=== PATIENT | male | born 1960 | race Caucasian/White ===

== ENCOUNTER 2020-11-16 10:26 | Emergency (ER) | payer OTHER, SELFPAY ==
[2020-11-16 10:28] VITALS: BP 179/113; PULSE 108; RESP 16; TEMP 36.3; O2SAT 96; BMI 25.7
[2020-11-16 10:34] VITALS: BP 171/107; PULSE 104; PULSE 105; RESP 18; O2SAT 96
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
--- NOTE | 2020-11-16 10:39 | XR_ITS ---
WS: [id number] Left wrist, 4 views, 11/16/2020 Clinical Data: fall injury Comparison: Left forearm, 07/29/2013. Findings: There is a fracture of the distal left radius. The fracture occurs adjacent to the distal portion of an orthopedic plate which had been applied years before to reduce a mid radial fracture. There is radiopaque material in the subcutaneous tissue of the left forearm which has been present fo r years. Incidentally noted is deformity of the left first metacarpal. The orthopedic plate applied t o the midportion of the left radius appears is intact. XR/XR wrist LT min 3V* [id number] Impression: 1. Fracture of distal left radius at the level of the distal portion of an orth opedic plate. 2. Numerous foreign bodies in the subcutaneous tissue of the left forearm and w rist unchanged.
[2020-11-16] MEDS: HYDROcodone-acetaminophen 7.5-325 mg Tablet 1 TAB PO (10:45)
[2020-11-16 12:23] VITALS: BP 155/106; PULSE 100; RESP 18; TEMP 37.2; O2SAT 94
--- NOTE | 2020-11-20 10:53 | DCPLANNER ---
restaurant operations manager had message to schedule a follow up appointment for patient with ortho. restaurant operations manager called the ortho clinic, spoke with , gave clinic patients information. restaurant operations manager was told that patients information would be printed and reviewed. Patient has [facility] insurance, patient case manager emailed January, with [facility], patients information was sent over a secure email so that the authorization process could be started.
--- NOTE | 2020-11-21 09:19 | DCPLANNER ---
Patient has a follow up appointment scheduled for Saturday, December 05, 2020 at 9:[address] Vargas. Clinic will call patient with appointment information.
--- NOTE | 2020-12-19 14:39 | DCPLANNER ---
Patient had a follow up appointment scheduled for 12.05.[address] Vargas at [facility] - patient did attend appointment.
== END 2020-11-16 12:30 | disposition home or self-care (01) ==
PROVIDERS: Emergency Provider Physician Assistant
DX: S52.502A Unspecified fracture of the lower end of left radius, initial encounter for closed fracture (principal); W01.0XXA Fall on same level from slipping, tripping and stumbling without subsequent striking against object, initial encounter
CPT/HCPCS: 29125; 73110; 99281; 99283

== ENCOUNTER → 2020-12-05 09:44 | Outpatient (BNVA) | payer OTHER, SELFPAY | PROVIDERS: PCP Physician Assistant; Referring Provider Physician Assistant; Visit Provider Specialist | DX: S52.592A Other fractures of lower end of left radius, initial encounter for closed fracture (principal); S62.355A Nondisplaced fracture of shaft of fourth metacarpal bone, left hand, initial encounter for closed fracture; X58.XXXA Exposure to other specified factors, initial encounter; M24.445 Recurrent dislocation, left finger | CPT/HCPCS: 73110 ==

== ENCOUNTER 2020-12-05 13:48 | Outpatient (CLI) | payer OTHER, SELFPAY | END 2020-12-05 13:49 | disposition home or self-care (01) | LOC: SPT 13:49 | PROVIDERS: PCP Physician Assistant; Visit Provider Specialist | DX: Z46.89 Encounter for fitting and adjustment of other specified devices (principal); S52.592D Other fractures of lower end of left radius, subsequent encounter for closed fracture with routine healing; X58.XXXD Exposure to other specified factors, subsequent encounter | CPT/HCPCS: 97760; L3982 ==

== ENCOUNTER 2021-02-26 15:49 | Emergency (ER) | payer OTHER, SELFPAY ==
[2021-02-26 16:22] VITALS: BP 107/74; PULSE 109; RESP 16; TEMP 36.4; O2SAT 96; BMI 26.6
--- NOTE | 2021-02-26 17:09 | ED_ITS ---
HPI - Animal Bite General: Chief Complaint: Animal Bite Stated Complaint: BIT BY RACOON 2 DAYS AGO, SWELLING, SORES IN RUE Time Seen by Provider: 02/26/21 17:07 History of Present Illness: HPI narrative: Patient is a 60-year-old male who comes to the ED after a raccoon bite. Patient says he was bitten by a raccoon approximately 2 days ago. The raccoon bit him a couple times on his right forearm. Patient says he was going to grab his trash can 1 night and the raccoon was in it and came out bit him when he grabbed a move the trash can. He denies any pain or purulent drainage from bite area. [facility] and [facility] told him he needs to come to the ED for rabies postexposure prophylaxis. Associated symptoms: Deny chills, fever(s) or headache(s) Review of Systems Const: Denies: fever(s), chills or fatigue Eyes: Denies: change in vision or eye discomfort ENMT: Denies: throat pain, odynophagia, nasal discharge or nasal congestion Card: Denies: chest pain, palpitations, edema, swelling of feet/ankles, dyspnea on exertion or orthopnea Resp: Denies: dyspnea, productive cough or non-productive cough GI: Denies: abdominal pain, nausea, vomiting, diarrhea, constipation or hematochezia : Denies: flank pain, difficulty urinating, dysuria or hematuria Musc: Denies: neck pain, back pain or extremity swelling Skin/Breast: Reports: new lesions (Couple small superficial puncture wound/bite barajas on right forearm.); Denies: rash Neuro: Denies: headache(s), numbness in extremities or weakness in extremities Physical Exam Const: COMMON NORMALS: no acute distress, patient oriented x3 and alert HENMT: COMMON NORMALS: normocephalic HEAD & SCALP: normocephalic MOUTH: Normal oral and palatal mucosa present THROAT: posterior oropharynx normal and uvula midline Neck/C-Spine: COMMON NORMALS: supple GENERAL: Yes normal visual inspection Resp: COMMON NORMALS: normal respiratory effort, No retractions, No use of accessory muscles and clear to auscultation bilaterally AUSCULTATION: clear to auscultation bilaterally Cardio: COMMON NORMALS: regular rate, regular rhythm, S1 normal heart sound present, S2 normal heart sound present, No gallops present (Cardio), No clicks present (Cardio), No murmurs present (Cardio) and Peripheral pulses 2+ throughout RATE: regular rate RHYTHM: regular rhythm HEART SOUNDS: S1 normal heart sound present and S2 normal heart sound present PERIPHERAL PULSES: Peripheral pulses 2+ throughout GI: COMMON NORMALS: Normal to inspection, nondistended, normoactive bowel sounds present, Soft to palpation, non-tender and no masses PALPATION: Yes Soft to palpation : COMMON NORMALS: Yes no CVA tenderness BLADDER/KIDNEY EXAM: Yes no CVA tenderness Back/Pelvis: COMMON NORMALS: no CVA tenderness Extremity: NARRATIVE EXTREMITY EXAM: Patient has multiple superficial abrasion/bite barajas on right forearm. There is some surrounding erythema and warmth around barajas but no tenderness or visible drainage seen. Findings suggestive of some possible cellulitis developing. GENERAL: Yes normal exam except as noted Neuro: COMMON NORMALS: patient oriented x3 and moves all extremities SENSORIUM/ORIENTATION: Yes alert Skin: NARRATIVE SKIN EXAM: Patient has multiple superficial abrasion/bite barajas on right forearm. There is some surrounding erythema and warmth around barajas but no tenderness or visible drainage seen. Findings suggestive of some possible cellulitis developing. GENERAL SKIN EXAM: dry skin Course Vital Signs: Vital signs: Vital Signs Temperature 97.6 F 02/26/21 16:22 Pulse Rate 109 H 02/26/21 16:22 Respiratory Rate 16 02/26/21 16:22 Blood Pressure 107/74 02/26/21 16:22 Pulse Oximetry 96 02/26/21 16:22 MDM - Animal Bite MDM Narrative: Medical decision making narrative: Patient is a 60-year-old male comes to the ED after being bitten by a raccoon the right forearm. Patient was told [facility] come here by [facility] for [facility]. Exam findings show some superficial bite barajas and abrasions on right forearm with some surrounding erythema and warmth. No purulent drainage or tenderness. Findings suggestive of some developing cellulitis. Patient was given rabies immunoglobulin and rabies vaccine while here in the ED. Patient was also given a dose of Augmentin here in the ED. Patient diagnosed with animal bite, postexposure prophylaxis for rabies and cellulitis. He was discharged home with a prescription for Augmentin and was instructed on the days he needs to return to the ED to receive further rabies shots to complete prophylaxis series. Return to ED precautions given. Patient understood and agreed with plan. Discharge Plan Discharge Patient Disposition: Home Clinical Impression: Need for post exposure prophylaxis for rabies, Bite by animal Cellulitis Qualifiers: Site of cellulitis: extremity Site of cellulitis of extremity: upper extremity Laterality: right Qualified Code(s): L03.113 - Cellulitis of right upper limb Condition: Stable Prescriptions: New Augmentin 500-125 mg tablet 1 tab PO BID 7 Days Qty: 14 RF: 0 No Action (DME) FAST FORM COCK UP SPLINT See Rx Instructions .Route .MEDSUPPLY Qty: 1 RF: 0 Discharge Orders: Discharge ED (Routine); Ordered 02/26/21 Ordered By: Deandre Moreno [facility] [Primary Care Provider] - Discharge Diet: Regular Discharge Activity: Resume usual activity Patient Instructions: Rabies Vaccine (Injection), Rabies Immune Globulin (Injection), Cellulitis (ED), Rabies (ED) Activity Restrictions/Additional Instructions: Follow-up with medical provider as directed. return to the ED for rabies vaccination dose on day 3(Thursday,March 01), 7() and 14(March 11). take medications as prescribed. Return to the ER or your medical provider if condition worsens. Please read and understand discharge instructions. If any questions, please ask. Coding Level of Care Code ED Industry Segment Specialist for Carlos Fwjohan Exam Comprehensive
[2021-02-26] MEDS: rabies vaccine 2.5 unit SDV IM (18:07)
== END 2021-02-26 18:22 | disposition home or self-care (01) ==
PROVIDERS: Emergency Provider Physician Assistant
DX: L03.113 Cellulitis of right upper limb (principal); Z20.3 Contact with and (suspected) exposure to rabies; Z29.14 Encounter for prophylactic rabies immune globulin; S51.851A Open bite of right forearm, initial encounter; W55.51XA Bitten by raccoon, initial encounter; Z23 Encounter for immunization
CPT/HCPCS: 90375; 90471; 90675; 96372; 99283

== ENCOUNTER → 2021-05-08 08:46 | Outpatient (BNVA) | payer OTHER, SELFPAY | PROVIDERS: Visit Provider Internal Medicine | DX: Z01.812 Encounter for preprocedural laboratory examination (principal); Z20.822 Contact with and (suspected) exposure to COVID-19; D12.6 Benign neoplasm of colon, unspecified | CPT/HCPCS: 87635 ==

== ENCOUNTER 2021-05-13 08:11 | Day surgery (SDC) | payer OTHER, SELFPAY ==
[2021-05-10 13:44] VITALS: BMI 26.6
--- NOTE | 2021-05-13 08:28 | ANES.PREANE2 ---
Pre-Anesthetic Assessment Pre-Anesthetic Assessment: Height/Weight: Height 1.65 m Weight 72.575 kg Preop Diagnosis: adenoma Proposed Procedure: Operation Date: 05/13/21 10:00 Proposed Procedures p Colonoscopy 24490 d12.6(Not Applicable) - Wiley Price MD Familial anesthetic complications: none Was Beta Nancy taken within 24 hours: N/A Was Clonidine taken within 24 hours: N/A Last intake: > 8 hrs Social: Social History: Alcohol (4 shots a day) and Tobacco Comment: fullbeard Exam: Pre-Anes Outpt Exam: alert, oriented x 3, clear to auscultation bilaterally and regular rate & rhythm Airway: Cervical ROM: WNL MP: 3 Dentition: Other (2 teeth) Pulmonary: Pulmonary: COPD CV/HEM: CV/HEM: HTN GI: GI: GERD Anesthetic Plan: ASA status: 2 Anesthesia: MAC PFSH Anesthesia PFSH: Family History (Updated 05/02/21 @ 14:[address]) Other Cancer Social History (Updated 05/02/21 @ 14:54 by VALERIE Yoder) Smoking and tobacco status: current every day smoker Alcohol intake: current Marital status: Number of children: 3 service: Yes History of recent travel: No Data Anesthesia Cardiac Studies: No Data to Display
[2021-05-13 09:32] VITALS: BP 157/121; PULSE 98; RESP 18; TEMP 37.2; O2SAT 98
[2021-05-13] MEDS: sodium chloride 0.9% 1,000 ML 30 ML IV (09:45)
--- NOTE | 2021-05-13 09:45 | P.HP_ITS ---
Same Day Surgery H&P Indication for Procedure/HPI DATE OF PROCEDURE: May 13, 2021 CHIEF COMPLAINT/INDICATIONFOR SURGICAL PROCEDURE: History of of serrated adenoma PREOP DIAGNOSIS: history of a serrated adenoma PLANNED PROCEDRUE: Operation Date: 05/13/21 10:00 Proposed Procedures p Colonoscopy 87543 d12.6(Not Applicable) - Wiley Price MD Medications/Allergies* Home Medications Medication Instructions Recorded Confirmed Type albuterol sulfate 90 mcg/actuation 2 puff INHALATION QID 04/22/21 05/13/21 History aerosol inhaler budesonide-formoterol HFA 160 2 puff INHALATION BID 04/22/21 05/13/21 History mcg-4.5 mcg/actuation aerosol inhaler cholecalciferol (vitamin D3) 50 4,000 unit PO DAILY tab 04/22/21 05/13/21 History mcg (2,000 unit) chewable tablet hydrochlorothiazide 25 mg tablet 12.5 mg PO DAILY tab 04/22/21 05/13/21 History omeprazole 40 mg capsule,delayed 40 mg PO DAILY 04/22/21 05/13/21 History release pravastatin 40 mg tablet 20 mg PO DAILY 04/22/21 05/13/21 History sildenafil 100 mg tablet 100 mg PO .weekly PRN tab 04/22/21 05/13/21 History tiotropium bromide 2.5 2 puff INHALATION DAILY 04/22/21 05/13/21 History mcg/actuation mist for inhalation losartan 100 mg tablet 100 mg PO DAILY 05/02/21 05/13/21 History Allergies/Adverse Reactions Allergy/AdvReac Type Severity Reaction Status Date / Time No Known Allergies Allergy Verified 05/10/21 13:40 Pertinent History/Comorbid Conditions* Family History (Updated 05/02/21 @ 14:53 by VALERIE Yoder) Cancer Social History Smoking and tobacco status: current every day smoker Alcohol intake: current Marital status: Number of children: 3 service: Yes History of recent travel: No Pertinent Exam Findings alert, oriented x 3, clear to auscultation bilaterally, regular rate & rhythm, operative site marked and procedure specific exam findings Recommendations Surgery/Procedure today Coding Level of Care Code Acute Massage Coordinator for Carlos Vela
[2021-05-13 11:05] VITALS: BP 105/84; PULSE 95; RESP 18; TEMP 36.4; O2SAT 95
[2021-05-13 11:15] VITALS: BP 121/88; PULSE 82; RESP 18; O2SAT 96
--- NOTE | 2021-05-13 19:26 | ANE.PACU2 ---
Inpatient post-anesthesia follow up: Airway intact: Yes Vital signs: Temperature 97.5 F Pulse Rate 82 Respiratory Rate 18 Blood Pressure 121/88 Pulse Oximetry 96 Oxygen Delivery Me thod Room Air Oxygen Flow Rate Fraction of Inspir ed Oxygen Hydration adequate: Yes Nausea and vomiting: No Pain level: 2 Mental status: Baseline
== END 2021-05-13 11:34 | disposition home or self-care (01) ==
PROVIDERS: Visit Provider Internal Medicine
PROC: 0DJD8ZZ Inspection of Lower Intestinal Tract, Via Natural or Artificial Opening Endoscopic (ICD-10-PCS; CPT 45378; principal; 2021-05-13 10:00)
DX: D12.6 Benign neoplasm of colon, unspecified (principal); D12.0 Benign neoplasm of cecum; D12.4 Benign neoplasm of descending colon; D12.3 Benign neoplasm of transverse colon; J44.9 Chronic obstructive pulmonary disease, unspecified; I10 Essential (primary) hypertension; K21.9 Gastro-esophageal reflux disease without esophagitis; F17.210 Nicotine dependence, cigarettes, uncomplicated
CPT/HCPCS: 45385; 88305; 96360; J2704; J7030

== ENCOUNTER 2021-11-07 09:11 | Outpatient (CLI) | payer OTHER, SELFPAY ==
--- NOTE | 2021-11-07 09:23 | MM_ITS ---
WS: [id number] DIAGNOSTIC BILATERAL DIGITAL MAMMOGRAM WITH CAD Bilateral breast ultrasound, limited HISTORY: Pain; right NIPPLE PAIN COMPARISON: None available. TECHNIQUE: Bilateral craniocaudad, mediolateral oblique, and mediolateral views are submitted. Spot c ompression bilateral MLO views. Computer aided detection utilized. Breast composition: The breasts are almost entirely fatty. Flamelike densities posterior to the nippl es but greatest on the RIGHT. No distortion of soft tissues and no nipple retraction. There is an enl arged but benign-appearing lymph node in the RIGHT axilla. Bilateral breast ultrasound, limited. Dendritic hypoechoic area posterior to the nipple corresponds to the mammographic abnormality. This a kaleb of soft tissue infiltration measures 2.1 x 1.8 x 0.8 cm with mild increased vascularity. Benign-a ppearing RIGHT axillary lymph node. There is a smaller area of decreased echogenicity posterior to the LEFT nipple. MM/[place] [id number] IMPRESSION: BI-RADS: 2-Benign FOLLOW UP: See Report Bilateral gynecomastia, RIGHT greater than LEFT.
== END 2021-11-07 09:12 | disposition home or self-care (01) ==
PROVIDERS: Visit Provider Family Medicine
DX: N64.4 Mastodynia (principal); N62 Hypertrophy of breast
CPT/HCPCS: 76642; 77066

== ENCOUNTER 2022-04-25 16:17 | Inpatient (IN) | payer OTHER, SELFPAY ==
[2022-04-25] VITALS (9 sets, daily range): BP systolic 85–103; BP diastolic 61–78; PULSE 98–130; RESP 15–31; TEMP 37; O2SAT 94–97
--- NOTE | 2022-04-25 17:09 | XRR_ITS ---
PROCEDURE INFORMATION: Exam: XR Chest Exam date and time: 04/25/2022 5:36 PM Age: 61 years old Clinical indication: Other: Hypotension TECHNIQUE: Imaging protocol: Radiologic exam of the chest. Views: 1 view. COMPARISON: CR Ribs RIGHT w PA Chest [id number] 05/24/2017 9:15 AM FINDINGS: Lungs: Lungs are clear bilaterally. Pleural spaces: No pleural effusion. No pneumothorax. Heart/Mediastinum: Stable mild enlargement of the cardiac silhouette. Mediastinal contours are unremarkable. Vasculature: Stable vascular calcifications in the aorta. Bones/joints: Unremarkable for age. XR/XR chest 1V portable [id number] IMPRESSION: 1. No acute cardiopulmonary process. 2. Incidental/nonacute findings are listed in the report.
--- NOTE | 2022-04-25 17:09 | ECG_ITS ---
[facility] Test Date: 2022-04-25 Pat Name: Jamar Gutierrez Department: Room: Gender: Male Payroll Representative: : 1960 Requested By: Vinny Wayne Order Number: [id number] Jesusita MD: Devon Abraham M.D. Measurements Intervals [place] Rate: 125 P: 21 AL: 130 QRS: 45 QRSD: 77 T: 76 QT: 318 QTc: 459 Interpretive Statements SINUS TACHYCARDIA MODERATE ST DEPRESSION [0.05+ mV ST DEPRESSION] Compared to ECG 10/12/2018 16:46:09 No significant changes Electronically Signed On 04-28-2022 17:56:36 CDT by Devon Abraham M.D. [email or web address] al[facility]uskegeeEternoGenselect [facility].Jogli/store/NU/[id number] [email or web address]
--- NOTE | 2022-04-25 17:12 | W.ED.CHESTPA ---
HPI - Chest Pain General: Chief Complaint: Chest Pain Stated Complaint: Very low BP Time Seen by Provider: 04/25/22 17:11 History of Present Illness: Mr. Gutierrez is a 61-year-old gentleman with history of COPD, hypertension, hyperlipidemia who presents to the emergency department due to syncope and low blood pressure. He reports intermittent substernal chest pain that radiates to the back described as an elephant sitting on his chest and subsequently increased lightheadedness including one episode of syncope. Currently symptoms are mild to moderate in intensity however has persisted. Denies history of frequent chest pain. Reports normal p.o. intake of liquids. No vomiting or diarrhea. No other specific changes in health, exacerbating, or alleviating factors identified. Onset (ago): hour(s) Timing of current episode: constant Prior episodes: No Onset: during rest Pain location: substernal Severity: moderate Quality: heaviness Exacerbating factors: exertion Associated symptoms: Reports syncope Review of Systems General: Reports: 10 or more systems reviewed and unremarkable except in HPI and below Card: Reports: syncope PFSH ED PFSH: Medical History (Updated 04/29/22 @ 00:01 by ) VASHTI (acute kidney injury) Chest pain COPD (chronic obstructive pulmonary disease) H/O esophageal reflux Hypokalemia Hypomagnesuria Hypotension Leukocytosis Polyp of colon Syncope Family History Other Cancer Social History Smoking and tobacco status: current every day smoker Alcohol intake: current Marital status: Number of children: 3 service: Yes History of recent travel: No Physical Exam Const: COMMON NORMALS: alert GENERAL APPEARANCE: cooperative and well developed HENMT: COMMON NORMALS: normocephalic and atraumatic HEAD & SCALP: normocephalic and atraumatic Eye: COMMON NORMALS: conjunctivae normal CONJUNCTIVA: Yes conjunctivae normal SCLERA: sclerae normal Neck/C-Spine: COMMON NORMALS: supple GENERAL: Yes trachea midline Resp: COMMON NORMALS: clear to auscultation bilaterally EFFORT & INSPECTION: Yes able to speak in complete sentences AUSCULTATION: clear to auscultation bilaterally Cardio: COMMON NORMALS: regular rate and regular rhythm RATE: regular rate RHYTHM: regular rhythm GI: COMMON NORMALS: Soft to palpation PALPATION: Yes Soft to palpation and No Tenderness to palpation present (GI) Extremity: GENERAL: Yes normal exam except as noted and No edema Neuro: COMMON NORMALS: moves all extremities SENSORIUM/ORIENTATION: Yes alert and No Orientation impaired Psych: COMMON NORMALS: mental status grossly normal and Normal thought process present THOUGHT PROCESS: Normal thought process present Course ED course: - Patient was seen and evaluated by me at bedside - Patient placed on cardiac monitors, IV access obtained - Initial evaluation notable for exam as above - Labs and xrays personally interpreted by me. EKG with sinus tachycardia, occassional PAC. 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 Fluids given hypotension and tachycardia. - Labs notable for leukocytosis, normal hemoglobin. Metabolic panel with evidence of dehydration. Hypokalemia present as well as creatinine significant elevation. No reported history of CKD. Magnesium also low. Potassium abd magnesium ordered. Delta troponin negative. BNP elevated. - Imaging notable for no lobar consolidation or pneumothorax. CT head negative for acute intracranial pathology. CT chest abdomen pelvis negative for acute infectious. Incidental findings discussed with patient. - Upon serial reexamination after treatment the patient was mildly improved though still requiring additional fluids - Based on patient history, evaluation, and testing as interpreted the most likely cause of the patient's condition is unclear cause of VASHTI with dehydration and syncope as well as Electrolyte/metabolic derangements - The results of ED evaluation were discussed with the patient including plan for admission due to requirement for level of care not available if discharged to prevent significant worsening/deterioration. - Admitting service was contacted and Dr [] with [] agreed to admit the patient - Patient was admitted without further deterioration or significant events. Note: Click bubbles or prepopulated spear in note writing are used for assistance with data collection and billing and are inherently more limited than narrative and other text portions of this note. Please use narrative for additional clinical history and defer to narrative/free test for any case of contradictory information. If information appears in only free text or click bubble it should be considered present or absent as reported. Please contact note engineering technical writer for clarifications of clinical information or contradictory information. MDM is a brief summary, contradictory or erroneous seeming information should be clarified and full note should be reviewed. Vital Signs: Vital signs: Vital Signs Temperature 98.8 F 04/28/22 12:15 Pulse Rate 70 04/28/22 12:15 Respiratory Rate 23 H 04/28/22 12:15 Blood Pressure 133/83 04/28/22 12:15 Pulse Oximetry 100 04/28/22 12:15 MDM - Chest Pain Medical Decision Making 61-year-old gentleman presenting with chest pain. Patient found to have tachycardia and hypotension. Labs notable for VASHTI and metabolic derangements. Admitted for further management after modest improvement with IV fluids. Medical Records I reviewed the patient's medical records. Lab Data I reviewed the patient's lab results. : 04/28/22 05:20 04/28/22 03:56 Radiology Impressions Chest X-Ray 04/25/22 17:09 IMPRESSION: 1. No acute cardiopulmonary process. 2. Incidental/nonacute findings are listed in the report. Chest/Abdomen/Pelvis CT 04/25/22 17:51 IMPRESSION: 1. No acute findings. 2. Moderate severity centrilobular emphysema. 3. Right lung nodules measuring up to 4 mm. For patients at low risk (minimal or absent history of smoking and of other known risk factors), no routine follow-up is indicated. For patients at high risk (history of smoking or of other known risk factors), consider optional CT Chest at 12 IMPRESSION: 1. No acute findings. 2. Incidental findings above. COMMENTS: Consistent with the [employer]'s Incidental Findings Committee white paper (J Am Amilcar Radiol 2017): For any incidental adrenal lesion greater than or equal to 1 cm but less than or equal to 4 cm classified in this report as benign, likely benign, or containing fat (including classification as an adenoma or myelolipoma), no follow-up imaging is recommended per consensus recommendations based on imaging criteria. Further lab evaluation could be pursued if warranted based on clinical findings. Head CT 04/25/22 17:51 IMPRESSION: 1. No acute abnormality of the brain. 2. Mild chronic white matter microangiopathic change. 3. Small amount of fluid in the right and left mastoid air cells. 4. Incidental/nonacute findings are listed in the report. Laboratory Results WBC 23.0 10^3/uL (4.0-10.0) H 04/25/22 17:38 RBC 4.28 10^6/uL (4.1-5.3) 04/25/22 17:38 Hgb 14.4 g/dL (11.7-16.6) 04/25/22 17:38 Hct 41.8 % (42.0-52.0) L 04/25/22 17:38 MCV 97.7 fl (80-94) H 04/25/22 17:38 MCH 33.6 pg (28.0-34.0) 04/25/22 17:38 MCHC 34.4 g/dL (30.0-36.0) 04/25/22 17:38 RDW 12.8 % (12.1-15.1) 04/25/22 17:38 Plt Count 331 10^3/cmm (130-400) 04/25/22 17:38 MPV 11.0 fL (7.4-10.4) H 04/25/22 17:38 Neut % (Auto) 76.8 % 04/25/22 17:38 Lymph % (Auto) 12.2 % 04/25/22 17:38 Sequoyah % (Auto) 8.3 % 04/25/22 17:38 Eos % (Auto) 1.2 % 04/25/22 17:38 Baso % (Auto) 0.5 % 04/25/22 17:38 Neut # (Auto) 17.66 10^3/uL (1.8-7.7) H 04/25/22 17:38 Lymph # (Auto) 2.8 10^3/uL (0.8-4.8) 04/25/22 17:38 Sequoyah # (Auto) 1.9 10^3/uL (0.2-0.9) H 04/25/22 17:38 Eos # (Auto) 0.3 10^3/uL (0.0-0.8) 04/25/22 17:38 Baso # (Auto) 0.1 10^3/uL (0.0-0.1) 04/25/22 17:38 Nucleated RBC % (auto) 0 % 04/25/22 17:38 Nucleated RBCs # 0.0 /100WBC 04/25/22 17:38 PT 13.90 SECONDS (12.1-14.9) 04/25/22 17:38 INR 1.04 (0.8-1.2) 04/25/22 17:38 APTT 28.3 SECONDS (23.9-36.7) 04/25/22 17:38 Sodium 134 mmol/L (136-145) L 04/25/22 17:38 Potassium 2.8 mmol/L (3.5-5.1) L* 04/25/22 17:38 Chloride 93 mmol/L (98-107) L 04/25/22 17:38 Carbon Dioxide 22 mmol/L (22-29) 04/25/22 17:38 Anion Gap 21.8 (5-19) H 04/25/22 17:38 BUN 39 mg/dL (8-23) H 04/25/22 17:38 Creatinine 4.8 mg/dL (0.7-1.2) H 04/25/22 17:38 GFR Calculation 12.4 mL/min (90-130) L 04/25/22 17:38 Glucose 122 mg/dL (65-115) H 04/25/22 17:38 Calculated Osmolality 289 mOsm/kg (285-295) 04/25/22 17:38 Calcium 9.4 mg/dL (8.5-10.5) 04/25/22 17:38 Magnesium 1.3 mg/dL (1.7-2.3) L 04/25/22 17:38 Total Bilirubin 0.7 mg/dL (0.15-1.2) 04/25/22 17:38 AST 23 U/L (0-40) 04/25/22 17:38 ALT 20 U/L (0-41) 04/25/22 17:38 Alkaline Phosphatase 132 IU/L (40-130) H 04/25/22 17:38 Creatine Kinase 75 U/L (39-308) 04/25/22 20:00 Troponin T Baseline 39 ng/L (0-15) H 04/25/22 17:38 Troponin T 120 Minute 33.02 ng/L (0-15) H 04/25/22 20:00 Delta Troponin T -5.98 ABS# (0-10) L 04/25/22 20:00 NT-Pro-B Natriuret Pep 3110 pg/mL (0-125) H 04/25/22 17:38 Total Protein 7.3 g/dL (6.6-8.7) 04/25/22 17:38 Albumin 4.4 g/dL (3.5-5.2) 04/25/22 17:38 Globulin 2.9 g/dL (1.3-4.6) 04/25/22 17:38 Lipase 120 U/L (13-60) H 04/25/22 17:38 Critical Care Time Critical Care Time: Critical Care Time: Yes Total Critical Care Time: 45 Attestation: The high probability of a clinically significant, sudden or life threatening deterioration of the patient's renal/metabolic system(s) required my full and direct attention, intervention and personal management. The critical care time is as shown. 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
[2022-04-25] MEDS: sodium chloride 0.9% 1,000 ML 999 ML IV (17:38)
[2022-04-25 17:47] LABS: Basophils # 0.1 10^3/uL (0.0-0.1); Basophils % 0.5 %; Eosinophils # 0.3 10^3/uL (0.0-0.8); Eosinophils % 1.2 %; Hematocrit 41.8 % (42.0-52.0); Hemoglobin 14.4 g/dL (11.7-16.6); Lymphocytes # 2.8 10^3/uL (0.8-4.8); Lymphocytes % 12.2 %; Mean Corpuscular HGB Conc 34.4 g/dL (30.0-36.0); Mean Corpuscular Hemoglobin 33.6 pg (28.0-34.0); Mean Corpuscular Volume 97.7 fl (80-94); Monocytes # 1.9 10^3/uL (0.2-0.9); Monocytes % 8.3 %; Neutrophils # 17.66 10^3/uL (1.8-7.7); Neutrophils % 76.8 %; Nucleated Red Blood Cells % 0 %; Platelet Count 331 10^3/cmm (130-400); Red Blood Count 4.28 10^6/uL (4.1-5.3); Red Cell Distribution Width 12.8 % (12.1-15.1)
--- NOTE | 2022-04-25 17:51 | CTR_ITS ---
PROCEDURE INFORMATION: Exam: CT Head Without Contrast Exam date and time: 04/25/2022 7:03 PM Age: 61 years old Clinical indication: Syncope and collapse; Patient HX: Syncope w fall TECHNIQUE: Imaging protocol: Computed tomography of the head without contrast. Sagittal and coronal reformatted images were created and reviewed. Radiation optimization: All CT scans at this facility use at least one of these dose optimization techniques: automated exposure control; mA and/or kV adjustment per patient size (includes targeted exams where dose is matched to clinical indication); or iterative reconstruction. COMPARISON: No relevant prior studies available. RADIATION DOSE METRICS: Total DLP (mGy-cm): 1073.68 FINDINGS: Brain: No acute intracranial hemorrhage. No acute infarct. No intra-axial or extra-axial masses. Trujillo-white matter differentiation is preserved. No cerebral edema. No extra-axial fluid collections. No midline shift. No evidence for Chiari 1 malformation. Mild cerebral volume loss. Mildly decreased attenuation in the deep white matter, consistent with mild chronic microangiopathic change. Cerebral ventricles: No hydrocephalus. Paranasal sinuses: Visualized paranasal sinuses are clear. Mastoid air cells: Small amount of fluid in the right and left mastoid air cells. Orbital cavities: Globes and lenses, extraocular muscles, and optic nerves are intact bilaterally. No acute intraorbital abnormality. Nasal cavity: Moderate left nasal septal deviation. Bharti bullosa of the right and left middle turbinates. Bones/joints: No acute fracture. Soft tissues: No acute abnormality of the extracranial soft tissues. Vasculature: Atherosclerotic changes in the visualized arteries. CT/CT head wo con* [id number] IMPRESSION: 1. No acute abnormality of the brain. 2. Mild chronic white matter microangiopathic change. 3. Small amount of fluid in the right and left mastoid air cells. 4. Incidental/nonacute findings are listed in the report.
--- NOTE | 2022-04-25 17:51 | CTR_ITS ---
PROCEDURE INFORMATION: Exam: CT Chest Without Contrast; Diagnostic Exam date and time: 04/25/2022 7:07 PM Age: 61 years old Clinical indication: Abdominal pain; Epigastric; Patient HX: C/O syncope, hypotensive w cp radiating thru to back; Additional info: Syncope, chest pain radiating to back and abdominal discomfo TECHNIQUE: Imaging protocol: Diagnostic computed tomography of the chest without contrast. Radiation optimization: All CT scans at this facility use at least one of these dose optimization techniques: automated exposure control; mA and/or kV adjustment per patient size (includes targeted exams where dose is matched to clinical indication); or iterative reconstruction. COMPARISON: CR (CHEST, ) 04/25/2022 5:36 PM RADIATION DOSE METRICS: Total DLP (mGy-cm): 1350.08 FINDINGS: Lungs: There is moderate severity upper lung predominant centrilobular emphysema. There is no consolidation. There is a noncalcified pulmonary nodule in the right lower lobe visible on series 4, image 51 measuring 4 mm. There is a noncalcified pulmonary nodule in the right lower lobe visible on series 4, image 41 measuring 4 mm. There is no consolidation. Pleural spaces: Unremarkable. No pneumothorax. No pleural effusion. Heart: There is moderate coronary artery calcification. Heart size is normal. There is no pericardial effusion. Lymph nodes: There is no mediastinal or hilar lymphadenopathy. Vasculature: There is mild aortic atherosclerotic disease. Bones/joints: Healed right anterolateral 4th rib fracture. Healed left lateral 8th through 10th rib fractures. No acute fracture. The visible portions of the clavicles, shoulders, scapulae, sternum and spine are intact. Soft tissues: The extrathoracic soft tissues are unremarkable. months. (Reference: Buzz) REFERENCES: Buzz Carballo et al. Guidelines for Management of Incidental Pulmonary Nodules Detected on CT Images: From the Fleischner Society 2017. Radiology. 2017;284(1):228-243. PROCEDURE INFORMATION: Exam: CT Abdomen And Pelvis Without Contrast Exam date and time: 04/25/2022 7:07 PM Age: 61 years old Clinical indication: Abdominal pain; Epigastric; Patient HX: C/O syncope, hypotensive w cp radiating thru to back; Additional info: Syncope, chest pain radiating to back and abdominal discomfo TECHNIQUE: Imaging protocol: Computed tomography of the abdomen and pelvis without contrast. Radiation optimization: All CT scans at this facility use at least one of these dose optimization techniques: automated exposure control; mA and/or kV adjustment per patient size (includes targeted exams where dose is matched to clinical indication); or iterative reconstruction. COMPARISON: CR Abdomen Series Acute [id number] 10/12/2018 4:31 PM RADIATION DOSE METRICS: Total DLP (mGy-cm): 1350.08 FINDINGS: Liver: The liver is normal. Gallbladder and bile ducts: The gallbladder is normal. There is no biliary dilation. Pancreas: The pancreas is unremarkable. Spleen: The spleen is unremarkable. Adrenal glands: 17 mm low-density left adrenal nodule consistent with a benign lipid rich adenoma. The right adrenal gland is unremarkable. Kidneys and ureters: The kidneys are unremarkable. No hydronephrosis or stones. No ureteral dilation. Stomach and bowel: The stomach is decompressed, preventing meaningful evaluation of wall thickness. The small bowel is nondilated. The colon is unremarkable. Appendix: The appendix is normal. Intraperitoneal space: There is no free air or significant intraperitoneal free fluid. Vasculature: There is moderate aortic atherosclerotic disease. Lymph nodes: There is no lymphadenopathy in the retroperitoneum, mesentery, pelvis or inguinal regions. Urinary bladder: The urinary bladder is decompressed, preventing meaningful evaluation of wall thickness. Reproductive: The prostate and seminal vesicles are unremarkable. 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 Moderate lumbar degenerative disc disease. The pelvis and hips are unremarkable. Soft tissues: The abdominal wall is intact. CT/[place] [id number] IMPRESSION: 1. No acute findings. 2. Moderate severity centrilobular emphysema. 3. Right lung nodules measuring up to 4 mm. For patients at low risk (minimal or absent history of smoking and of other known risk factors), no routine follow-up is indicated. For patients at high risk (history of smoking or of other known risk factors), consider optional CT Chest at 12 IMPRESSION: 1. No acute findings. 2. Incidental findings above. COMMENTS: Consistent with the [employer]'s Incidental Findings Committee white paper (J Am Amilcar Radiol 2017): For any incidental adrenal lesion greater than or equal to 1 cm but less than or equal to 4 cm classified in this report as benign, likely benign, or containing fat (including classification as an adenoma or myelolipoma), no follow-up imaging is recommended per consensus recommendations based on imaging criteria. Further lab evaluation could be pursued if warranted based on clinical findings.
[2022-04-25 18:00] LABS: INR 1.04 (0.8-1.2); Partial Thromboplastin Time 28.3 SECONDS (23.9-36.7)
[2022-04-25 18:21] LABS: Troponin(5th) Baseline 39 ng/L (0-15)
[2022-04-25 18:30] LABS: Alanine Aminotransferase 20 U/L (0-41); Albumin Level 4.4 g/dL (3.5-5.2); Alkaline Phosphatase 132 IU/L (40-130); Anion Gap 21.8 (5-19); Aspartate Amino Transferase 23 U/L (0-40); Blood Urea Nitrogen 39 mg/dL (8-23); Calcium 9.4 mg/dL (8.5-10.5); Carbon Dioxide 22 mmol/L (22-29); Chloride 93 mmol/L (98-107); Globulin 2.9 g/dL (1.3-4.6); Glomerular Filtration Rate 12.4 mL/min (90-130); Glucose 122 mg/dL (65-115); Lipase 120 U/L (13-60); NT Pro B Type Natriuretic Pept 3110 pg/mL (0-125); Osmolality Calculated 289 mOsm/kg (285-295); Sodium 134 mmol/L (136-145); Total Bilirubin 0.7 mg/dL (0.15-1.2); Total Protein 7.3 g/dL (6.6-8.7)
[2022-04-25 18:54] LABS: Potassium 2.8 mmol/L (3.5-5.1)
--- NOTE | 2022-04-25 19:09 | ECG_ITS ---
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 Measurements Intervals [place] Rate: 109 P: 22 SC: 137 QRS: 33 QRSD: 79 T: 69 QT: 338 QTc: 456 Interpretive Statements SINUS TACHYCARDIA WITH OCCASIONAL SUPRAVENTRICULAR PREMATURE COMPLEXES MODERATE ST DEPRESSION [0.05+ mV ST DEPRESSION] Compared to ECG 04/25/2022 17:03:18 No significant changes Electronically Signed On 04-28-2022 18:21:31 CDT by Devon Abraham M.D. [id number]
--- NOTE | 2022-04-25 19:12 | PC.NURSE ---
REPORT GIVEN TO [facility].
[2022-04-25 19:13] LABS: Magnesium 1.3 mg/dL (1.7-2.3)
[2022-04-25 20:24] LABS: Troponin 5 2HR 33.02 ng/L (0-15)
[2022-04-25 20:25] LABS: Troponin 5 2HR Delta -5.98 ABS# (0-10)
[2022-04-25 20:34] LABS: Creatine Phosphokinase 75 U/L (39-308)
[2022-04-25 21:09] LABS: Lactate (Lactic Acid level) 1.9 mmol/L (0.5-2.2)
[2022-04-25] MEDS: sodium chloride 0.9% 500 ML 999 ML IV (21:30)
[2022-04-25] MEDS: magnesium sulfate premix 4 GM/100 ML PREMIX IV (21:30)
[2022-04-25] MEDS: potassium chloride premix 100 ML 25 MEQ IV (21:30)
--- NOTE | 2022-04-25 23:09 | ECG_ITS ---
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 Measurements Intervals [place] Rate: 95 P: 61 DC: 140 QRS: 46 QRSD: 90 T: 76 QT: 360 QTc: 453 Interpretive Statements SINUS RHYTHM MINIMAL ST DEPRESSION [0.025+ mV ST DEPRESSION] Compared to ECG 04/25/2022 19:16:42 Sinus tachycardia no longer present ST (T wave) deviation still present Electronically Signed On 04-28-2022 18:19:08 CDT by Devon Abraham M.D. [email or web address]
[2022-04-26] VITALS (28 sets, daily range): BP systolic 74–103; BP diastolic 54–82; PULSE 17–117; RESP 17–88; TEMP 36.6–37.4; O2SAT 93–99
[2022-04-26 00:11] LABS: Troponin 5 6HR 31.42 ng/L (0-15)
--- NOTE | 2022-04-26 00:15 | PC.NURSE ---
Called and spoke with Dr Camilo regarding patient unable to tolerate IV potassium run. ordered PO potassium once.
[2022-04-26] MEDS: potassium chloride ER 20 mEq Tablet 60 MEQ PO (00:28)
[2022-04-26 01:13] LABS: Add Urine Microscopic? NO; Charge for UA Resulting for Rev
[2022-04-26 01:14] LABS: Urine Appearance Clear (CLEAR); Urine Color Yellow (Yellow)
[2022-04-26 01:15] LABS: Bilirubin Urine 1+ (Negative); Blood Urine Neg (Negative); Glucose Urine UA Norm (Normal); Ketones Urine Negative (Negative); Leukocyte Esterase Urine Negative (Negative); Nitrate Urine Negative (Negative); Protein Urine Neg (Negative); Urobilinogen Urine Norm (Negative); pH Urine 5 (5-7)
--- NOTE | 2022-04-26 02:32 | PM.HP ---
Providers/Chief Complaint Admitting Physician: Ruth Ann Camilo MD Primary Care Provider: [facility] Chief Complaint: Very low BP History of Present Illness Jamar Gutierrez is a 61 year old male with a past medical history of COPD, hypertension hyperlipidemia presenting to the emergency room today due to complaints of dizziness and hypotension. Patient states that he has been feeling dizzy over the past 2 days. Describes these as episodes of lightheadedness worsen particularly upon changing position or trying to stand from a sitting position. Review of systems is positive for chest pain that feels as a central sternal pressure that happened 2 days ago. States that the pain was additionally radiating into his back. Denies any complains of abdominal pain nausea or vomiting. He has a history of COPD and currently endorses some postnasal drip. Continues to use inhalers as prescribed. He checked his blood pressure at home during the episode of dizziness and found to be low with systolic 85. Denies any recent changes in his antihypertensive regimen. Labs today were notable for acute kidney injury with creatinine up to 4.8, previously noted normal at 0.9 from 2019. He has noticed some reduced urine output today. Additionally noted to have hypokalemia 2.8. He has not been out in the heat. CT head today was without any acute intracranial abnormalities. CT chest abdomen and pelvis was performed due to concerns for dissection which showed centrilobular emphysema and right lung nodules, otherwise without any acute findings on her noncontrast study. Patient denies any current chest or abdominal or back pain to me at this present time. He denies any fever chills. Review of Systems General: Reports: 10 or more systems reviewed and unremarkable except in HPI and below Const: Denies: fever(s), chills or body aches Eyes: Denies: change in vision, blurry vision or photophobia ENMT: Reports: hoarseness; Denies: throat pain, enlarged tonsils, odynophagia or nasal congestion Card: Denies: chest pain, palpitations, irregular heart rhythm, edema, swelling of feet/ankles, lightheadedness, pre-syncope, dyspnea on exertion or orthopnea Resp: Denies: dyspnea, productive cough, non-productive cough, wheezing, stridor, pain on inspiration, change in phlegm color, hemoptysis or chest congestion GI: Denies: abdominal pain, nausea, vomiting, hematemesis, coffee ground emesis, dysphagia, heartburn, diarrhea, constipation, GI cramping, change in stool character, hematochezia or melena : Denies: flank pain, dysuria, urinary frequency, urinary urgency, urinary hesitancy or hematuria Musc: Denies: neck pain, back pain, extremity pain, joint swelling, joint warmth or deformity Neuro: Denies: headache(s), numbness in extremities, weakness in extremities, sensory changes, difficulty walking, frequent falls, dizziness, vertigo, behavioral changes, Slurred speech present or seizure-like activity Psych: Denies: anxiety, depression, suicidal ideation or homicidal ideation Endo: Denies: polyuria, polydipsia, tired all the time, cold intolerance or hot flashes Db/Lymph: Denies: easy bruising or easy bleeding Medications/Allergies Home Medications Medication Instructions Recorded Confirmed Last Taken Type albuterol sulfate 90 mcg/actuation 2 puff INHALATION QID 04/22/21 05/13/21 Unknown History aerosol inhaler budesonide-formoterol HFA 160 2 puff INHALATION BID 04/22/21 05/13/21 Unknown History mcg-4.5 mcg/actuation aerosol inhaler cholecalciferol (vitamin D3) 50 4,000 unit PO DAILY tab 04/22/21 05/13/21 05/12/21 History mcg (2,000 unit) chewable tablet hydrochlorothiazide 25 mg tablet 12.5 mg PO DAILY tab 04/22/21 05/13/21 05/12/21 History omeprazole 40 mg capsule,delayed 40 mg PO DAILY 04/22/21 05/13/21 05/12/21 History release pravastatin 40 mg tablet 20 mg PO DAILY 04/22/21 05/13/21 05/12/21 History sildenafil 100 mg tablet 100 mg PO .weekly PRN tab 04/22/21 05/13/21 Unknown History tiotropium bromide 2.5 2 puff INHALATION DAILY 04/22/21 05/13/21 Unknown History mcg/actuation mist for inhalation (Spiriva Respimat) losartan 100 mg tablet (Cozaar) 100 mg PO DAILY 05/02/21 05/13/21 05/12/21 History Allergies Allergy/AdvReac Type Severity Reaction Status Date / Time No Known Allergies Allergy Verified 04/25/22 17:02 PFSH Acute PFSH: Medical History (Updated 04/26/22 @ 05:56 by Ruth Ann Camilo MD) COPD (chronic obstructive pulmonary disease) H/O esophageal reflux Polyp of colon Family History Other Cancer Social History Smoking and tobacco status: current every day smoker Alcohol intake: current Marital status: Number of children: 3 service: Yes History of recent travel: No Vitals/I&O/Wt Last Vital Signs Temp 98.6 F 04/25/22 16:58 Pulse 113 H 04/26/22 00:45 Resp 19 H 04/26/22 00:45 BP 88/71 04/26/22 00:45 Pulse Ox 94 04/26/22 00:45 04/25/22 04/25/22 04/26/22 14:59 22:59 06:59 Intake Total 1500 / 1500 396.25 / 1896.25 Output Total 300 / 300 Balance 1500 / 1500 96.25 / 1596.25 Weight last 48 hrs Weight 72.575 kg Physical Exam Narrative: General: No acute distress, AO x3 HEENT: PERRLA, pupils bilaterally equal and reactive, pallors not present Chest: Clear to auscultation bilaterally CVS: S1-S2 regular, no murmurs, no tachycardia, no gallops, no rubs Abdomen: Soft, nontender, nondistended Neuro: No focal deficits, no facial deformity, AO x3, power 5/5 in all limbs Extremities: No edema clubbing or cyanosis Data : 04/25/22 17:38 04/25/22 17:38 Other Labs: Radiology Impressions Chest X-Ray 04/25/22 17:09 IMPRESSION: 1. No acute cardiopulmonary process. 2. Incidental/nonacute findings are listed in the report. Chest/Abdomen/Pelvis CT 04/25/22 17:51 IMPRESSION: 1. No acute findings. 2. Moderate severity centrilobular emphysema. 3. Right lung nodules measuring up to 4 mm. For patients at low risk (minimal or absent history of smoking and of other known risk factors), no routine follow-up is indicated. For patients at high risk (history of smoking or of other known risk factors), consider optional CT Chest at 12 IMPRESSION: 1. No acute findings. 2. Incidental findings above. COMMENTS: Consistent with the [employer]'s Incidental Findings Committee white paper (J [employer] Amilcar [employer]iol 2017): For any incidental adrenal lesion greater than or equal to 1 cm but less than or equal to 4 cm classified in this report as benign, likely benign, or containing fat (including classification as an adenoma or myelolipoma), no follow-up imaging is recommended per consensus recommendations based on imaging criteria. Further lab evaluation could be pursued if warranted based on clinical findings. Head CT 04/25/22 17:51 IMPRESSION: 1. No acute abnormality of the brain. 2. Mild chronic white matter microangiopathic change. 3. Small amount of fluid in the right and left mastoid air cells. 4. Incidental/nonacute findings are listed in the report. Laboratory Results WBC 23.0 10^3/uL (4.0-10.0) H 04/25/22 17:38 RBC 4.28 10^6/uL (4.1-5.3) 04/25/22 17:38 Hgb 14.4 g/dL (11.7-16.6) 04/25/22 17:38 Hct 41.8 % (42.0-52.0) L 04/25/22 17:38 MCV 97.7 fl (80-94) H 04/25/22 17:38 MCH 33.6 pg (28.0-34.0) 04/25/22 17:38 MCHC 34.4 g/dL (30.0-36.0) 04/25/22 17:38 RDW 12.8 % (12.1-15.1) 04/25/22 17:38 Plt Count 331 10^3/cmm (130-400) 04/25/22 17:38 MPV 11.0 fL (7.4-10.4) H 04/25/22 17:38 Neut % (Auto) 76.8 % 04/25/22 17:38 Lymph % (Auto) 12.2 % 04/25/22 17:38 [place] % (Auto) 8.3 % 04/25/22 17:38 Eos % (Auto) 1.2 % 04/25/22 17:38 Baso % (Auto) 0.5 % 04/25/22 17:38 Neut # (Auto) 17.66 10^3/uL (1.8-7.7) H 04/25/22 17:38 Lymph # (Auto) 2.8 10^3/uL (0.8-4.8) 04/25/22 17:38 [place] # (Auto) 1.9 10^3/uL (0.2-0.9) H 04/25/22 17:38 Eos # (Auto) 0.3 10^3/uL (0.0-0.8) 04/25/22 17:38 Baso # (Auto) 0.1 10^3/uL (0.0-0.1) 04/25/22 17:38 Nucleated RBC % (auto) 0 % 04/25/22 17:38 Nucleated RBCs # 0.0 /100WBC 04/25/22 17:38 PT 13.90 SECONDS (12.1-14.9) 04/25/22 17:38 INR 1.04 (0.8-1.2) 04/25/22 17:38 APTT 28.3 SECONDS (23.9-36.7) 04/25/22 17:38 Sodium 134 mmol/L (136-145) L 04/25/22 17:38 Potassium 2.8 mmol/L (3.5-5.1) L* 04/25/22 17:38 Chloride 93 mmol/L (98-107) L 04/25/22 17:38 Carbon Dioxide 22 mmol/L (22-29) 04/25/22 17:38 Anion Gap 21.8 (5-19) H 04/25/22 17:38 BUN 39 mg/dL (8-23) H 04/25/22 17:38 Creatinine 4.8 mg/dL (0.7-1.2) H 04/25/22 17:38 GFR Calculation 12.4 mL/min (90-130) L 04/25/22 17:38 Glucose 122 mg/dL (65-115) H 04/25/22 17:38 Calculated Osmolality 289 mOsm/kg (285-295) 04/25/22 17:38 Lactate 1.9 mmol/L (0.5-2.2) 04/25/22 20:45 Calcium 9.4 mg/dL (8.5-10.5) 04/25/22 17:38 Magnesium 1.3 mg/dL (1.7-2.3) L 04/25/22 17:38 Total Bilirubin 0.7 mg/dL (0.15-1.2) 04/25/22 17:38 AST 23 U/L (0-40) 04/25/22 17:38 ALT 20 U/L (0-41) 04/25/22 17:38 Alkaline Phosphatase 132 IU/L (40-130) H 04/25/22 17:38 Creatine Kinase 75 U/L (39-308) 04/25/22 20:00 Troponin T Baseline 39 ng/L (0-15) H 04/25/22 17:38 Troponin T 120 Minute 33.02 ng/L (0-15) H 04/25/22 20:00 Delta Troponin T -5.98 ABS# (0-10) L 04/25/22 20:00 Troponin T Hi Sens 6Hr 31.42 ng/L (0-15) H 04/25/22 23:37 Troponin T Hi Sens 6Hr Delta -7.58 ng/L (0-12) L 04/25/22 23:37 NT-Pro-B Natriuret Pep 3110 pg/mL (0-125) H 04/25/22 17:38 Total Protein 7.3 g/dL (6.6-8.7) 04/25/22 17:38 Albumin 4.4 g/dL (3.5-5.2) 04/25/22 17:38 Globulin 2.9 g/dL (1.3-4.6) 04/25/22 17:38 Lipase 120 U/L (13-60) H 04/25/22 17:38 Urine Color Yellow (Yellow) 04/26/22 01:00 Urine Appearance Clear (CLEAR) 04/26/22 01:00 Urine pH 5 (5-7) 04/26/22 01:00 Ur Specific [place] 1.010 (1.005-1.030) 04/26/22 01:00 Urine Protein Neg (Negative) 04/26/22 01:00 Urine Glucose (UA) Norm (Normal) 04/26/22 01:00 Urine Ketones Negative (Negative) 04/26/22 01:00 Urine Blood Neg (Negative) 04/26/22 01:00 Urine Nitrate Negative (Negative) 04/26/22 01:00 Urine Bilirubin 1+ (Negative) H 04/26/22 01:00 Urine Urobilinogen Norm mg/dL (Negative) 04/26/22 01:00 Ur Leukocyte Esterase Negative (Negative) 04/26/22 01:00 Micro: Microbiology 04/25/22 20:45 Blood Culture - Preliminary Blood SPECIMEN COLLECTED 04/25/22 20:40 Blood Culture - Preliminary Blood SPECIMEN COLLECTED A&P Assessment and plan (1) VASHTI (acute kidney injury): Patient presenting today with complaints of dizziness, hypotension and acute kidney injury. Check urine lites, urine creatinine CT abdomen pelvis without any signs of obstruction. Hold losartan and hydrochlorothiazide. Patient denies any recent changes in dose or excessive intake. Check orthostatics. Check CPK IV fluid normal saline +40 KCl at 75 cc an hour Status: Acute (2) Leukocytosis: Leukocytosis up to 23 without any localizing signs or symptoms of infection. At this time will hold off on any antibiotics while undergoing work-up for any underlying infection., Blood culture. CT chest abdomen pelvis without any acute infective process. Status: Acute (3) Hypokalemia: Repleted with IV and p.o. supplementation Status: Acute (4) Hypotension: Unclear cause at this time. Given additional findings of VASHTI, leukocytosis, hypokalemia, dehydration may be contributing though patient denies any recent history of poor p.o. intake reduced appetite or work outdoors in the heat. We will hold his antihypertensives for now. Reports intermittent chest discomfort, troponins noted to be mildly elevated in the 30s range, however without significant delta at 2 and 6 hours. EKG shows sinus tachycardia at 125 bpm. 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
[2022-04-26] MEDS: sodium chlor 0.9% + KCl 40 mEq 40 MEQ/1,000 ML BAG 75 MEQ IV (02:52)
[2022-04-26] MEDS: heparin 5,000 unit/mL INJ 1 mL 5000 UNIT SUBCUT ×2 (02:59→14:21)
--- NOTE | 2022-04-26 05:52 | PC.NURSE ---
Called to speak with Dr Camilo regarding patient does not have labs for this morning but receieved potassium and Mag replacement. Dr Camilo to put in timed labs.
--- NOTE | 2022-04-26 05:59 | USCV_ITS ---
Jamar Gutierrez Age: 61 Gender: M : 1960 Exam Date: 04/26/2022 10:16 Ordering Phys: Ruth Ann Camilo MD Technologist: HENRI Exam Location: [facility] – [place] Indication: CHEST PAIN, HYPOTENSION, DIZZINESS BP: 99 / 66 HR: 95 Rhythm: Sinus Technical Quality: Adequate MEASUREMENTS (Male / Female) Normal Values 2D ECHO LV Ejection Fraction MOD 2C 70.6 % LV Ejection Fraction 2C AL 72.2 % LA Width 2.7 cm LA Height 4.5 cm RA Width 3.6 cm RA Height 4.3 cm IVC Diameter 1.3 cm DOPPLER AV Peak Velocity 187.0 cm/s LVOT Peak Velocity 117.0 cm/s MV Peak Velocity 111.0 cm/s MV Area PHT 3.7 cm squared Mitral E to A Ratio 1.0 MV E' Velocity 51.0 cm/s Mitral E to MV E' Ratio 9.5 Mitral E to LV E' Lateral Ratio 10.2 Mitral E to LV E' Septal Ratio 8.8 TR Peak Velocity 165.9 cm/s TR Peak Gradient 11.0 mmHg TR Mean Velocity 117.8 cm/s TR Mean Gradient 5.9 mmHg TR Velocity Time Integral 29.5 cm TV Peak E Velocity 73.0 cm/s Right Atrial Pressure 3.0 mmHg Pulmonary Artery Systolic Pressu 14.0 mmHg FINDINGS Left Ventricle Normal left ventricular size. LV systolic function is normal with EF of 55-60%. No regional wall motion abnormalities. Diastolic function is normal Right Ventricle The right ventricle is normal in size and function. Right Atrium The right atrium is normal in size. Left Atrium The left atrium is normal in size. Mitral Valve Structurally normal mitral valve without significant stenosis or prolapse. There is trace mitral regurgitation. Aortic Valve Thickened aortic valve. Mild aortic stenosis with mean gradient across the valve of 7.5mmHg with aortic valve area of 1.32cm2.There is no aortic regurgitation. Tricuspid Valve Structurally normal tricuspid valve without significant stenosis. Trace tricuspid regurgitation. Pulmonary artery systolic pressure is normal. Pulmonic Valve Not well visualized Pericardium Normal pericardium without effusion. Aorta Normal ascending aorta dimension. IVC CONCLUSIONS LV systolic function is normal with EF of 55-60% Diastolic function is normal Trace mitral regurgitation Mild aortic stenosis Trace tricuspid regurgitation No comparison studies are available Devon Abraham MD (Electronically Signed) Final Date: 27 April 2022 11:29 S
[2022-04-26] MEDS: ipratropium-albuterol 3 mL Neb INHALATION ×2 (08:34→19:43)
[2022-04-26] MEDS: pantoprazole DR 40 mg Tablet PO (09:53)
[2022-04-26 12:19] LABS: Basophils % 0.3 %; Eosinophils # 0.2 10^3/uL (0.0-0.8); Eosinophils % 1.8 %; Hematocrit 30.2 % (42.0-52.0); Hemoglobin 10.7 g/dL (11.7-16.6); Lymphocytes # 1.4 10^3/uL (0.8-4.8); Lymphocytes % 11.1 %; Mean Corpuscular HGB Conc 35.4 g/dL (30.0-36.0); Mean Corpuscular Hemoglobin 34.3 pg (28.0-34.0); Mean Corpuscular Volume 96.8 fl (80-94); Monocytes % 8.1 %; Neutrophils # 9.66 10^3/uL (1.8-7.7); Neutrophils % 77.9 %; Nucleated Red Blood Cells % 0 %; Platelet Count 250 10^3/cmm (130-400); Red Blood Count 3.12 10^6/uL (4.1-5.3); Red Cell Distribution Width 12.7 % (12.1-15.1); White Blood Count 12.4 10^3/uL (4.0-10.0)
[2022-04-26 12:49] LABS: Alanine Aminotransferase 20 U/L (0-41); Albumin Level 3.5 g/dL (3.5-5.2); Alkaline Phosphatase 115 IU/L (40-130); Anion Gap 17.8 (5-19); Aspartate Amino Transferase 28 U/L (0-40); Blood Urea Nitrogen 39 mg/dL (8-23); Calcium 8.7 mg/dL (8.5-10.5); Carbon Dioxide 20 mmol/L (22-29); Chloride 102 mmol/L (98-107); Globulin 2.2 g/dL (1.3-4.6); Glomerular Filtration Rate 14.9 mL/min (90-130); Glucose 107 mg/dL (65-115); Iron 23 ug/dL (59-158); Osmolality Calculated 292 mOsm/kg (285-295); Percent Saturation 13.4 % (20-50); Potassium 3.8 mmol/L (3.5-5.1); Sodium 136 mmol/L (136-145); Total Bilirubin 0.4 mg/dL (0.15-1.2); Total Iron Binding Capacity 171 mcg/dl; Total Protein 5.7 g/dL (6.6-8.7); Unsaturated Iron Binding 148 ug/dL (112-347)
[2022-04-26 12:56] LABS: Procalcitonin 0.23 ng/mL (0-0.5)
[2022-04-26 13:03] LABS: Magnesium 2.2 mg/dL (1.7-2.3); Thyroid Stimulating Hormone 0.75 uIU/mL (0.27-4.20); Vitamin B12 699 pg/mL (232-1245)
[2022-04-26 13:04] LABS: Folate Level 7.5 ng/mL (4.5-32.2)
--- NOTE | 2022-04-26 15:47 | PM.PN ---
Subjective Subjective: Admitted overnight. Today morning on examination sitting on bedside having his breakfast. Overnight blood pressures are soft with positive orthostatic. Right now blood pressure is better. Patient denies of having any dizziness. Continues to remain on room air. Vitals/I&O/Wt Last Vital Signs Temp 98 F 04/26/22 15:25 Pulse 85 04/26/22 15:31 Resp 18 04/26/22 15:31 BP 97/74 04/26/22 15:25 Pulse Ox 95 04/26/22 15:31 04/26/22 04/26/22 04/26/22 06:59 14:59 22:59 Intake Total 636.25 / 2136.25 960 / 960 Output Total 300 / 300 600 / 600 Balance 336.25 / 1836.25 360 / 360 Weight last 48 hrs Weight 72.575 kg Physical Exam Narrative: General: No acute distress, AO x3, dehydrated, HEENT: PERRLA, pupils bilaterally equal and reactive, pallors not present Chest: Clear to auscultation bilaterally CVS: S1-S2 regular, no murmurs, no tachycardia, no gallops, no rubs Abdomen: Soft, nontender, nondistended Neuro: No focal deficits, no facial deformity, AO x3, power 5/5 in all limbs Extremities: No edema clubbing or cyanosis Data : 04/26/22 11:59 04/26/22 11:59 Micro: Microbiology 04/25/22 20:45 Blood Culture - Preliminary Blood SPECIMEN COLLECTED 04/25/22 20:40 Blood Culture - Preliminary Blood SPECIMEN COLLECTED A&P Assessment and plan (1) VASHTI (acute kidney injury): Most likely secondary dehydration along with concomitant use of losartan hydrochlorothiazide. Patient also gives history of using NSAIDs. Also hypotensive on admission Baseline creatinine normal. Currently 4.1. CT abdomen pelvis negative for obstructive nephropathy. Urine studies appreciated. Check CPK, hepatitis panel, TSH, iron panel, vitamin B12, folate levels. Check BMP daily. Normal saline at 75 cc/h. Strict input output charting. Status: Acute (2) Leukocytosis: Leukocytosis up to 23 on admission. Without any localizing signs or symptoms of infection. Currently trending down. At this time will hold off on any antibiotics while undergoing work-up for any underlying infection. Blood culture. CT chest abdomen pelvis without any acute infective process. Status: Acute (3) Hypokalemia: Repleted. Continue to monitor daily. Status: Acute (4) Hypotension: Unclear cause at this time. Most likely secondary to poor oral intake along with multiple antihypertensives at home. Target blood pressure less than 140/90. Mean over 65. Check orthostatic every shift. Hold off on antihypertensives for now. Reports intermittent chest discomfort, troponins noted to be mildly elevated in the 30s range, however without significant delta at 2 and 6 hours. EKG shows sinus tachycardia at 125 bpm on admission which has resolved Status: Acute Plan Full code. Renal nondialysis diet. Heparin 5000 every 12 hourly. 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
[2022-04-26] MEDS: sodium chloride 0.9% 1,000 ML 75 ML IV (17:15)
[2022-04-26] MEDS: ferrous gluconate 324 mg Tablet PO (17:16)
[2022-04-26 17:50] LABS: Potassium, Radom Urine 16 mmol/L; Urine Random Chloride 65 mmol/L; Urine Random Sodium 79 mmol/L
[2022-04-26 17:56] LABS: Urine Creatinine 99 mg/dL (39-259)
[2022-04-26 17:58] LABS: Amphetamines Screen Urine Negative (Negative); Barbiturates Screen Urine Negative (Negative); Benzodiazepines Screen Urine Negative (Negative); Cocaine Screen Urine Negative (Negative); Opiate Screen Urine Negative (Negative); PCP Screen Urine Negative (Negative); THC Screen Urine Negative (Negative)
[2022-04-26 18:23] LABS: Alanine Aminotransferase 19 U/L (0-41); Albumin Level 3.6 g/dL (3.5-5.2); Alkaline Phosphatase 121 IU/L (40-130); Anion Gap 16.9 (5-19); Aspartate Amino Transferase 24 U/L (0-40); Blood Urea Nitrogen 39 mg/dL (8-23); Calcium 8.6 mg/dL (8.5-10.5); Carbon Dioxide 20 mmol/L (22-29); Chloride 105 mmol/L (98-107); Globulin 2.3 g/dL (1.3-4.6); Glomerular Filtration Rate 16.7 mL/min (90-130); Glucose 115 mg/dL (65-115); Osmolality Calculated 296 mOsm/kg (285-295); Potassium 3.9 mmol/L (3.5-5.1); Sodium 138 mmol/L (136-145); Total Bilirubin 0.4 mg/dL (0.15-1.2); Total Protein 5.9 g/dL (6.6-8.7)
[2022-04-26 18:50] LABS: Eosinophil Urine No Eosinophils Seen; Urine Eosinophil Count 0 (0-0)
[2022-04-27] VITALS (16 sets, daily range): BP systolic 94–133; BP diastolic 67–82; PULSE 89–116; RESP 16–22; TEMP 36.7–37.6; O2SAT 93–99
[2022-04-27] MEDS: heparin 5,000 unit/mL INJ 1 mL 5000 UNIT SUBCUT ×2 (01:58→14:15)
[2022-04-27 05:18] LABS: Basophils # 0.1 10^3/uL (0.0-0.1); Basophils % 0.5 %; Eosinophils # 0.3 10^3/uL (0.0-0.8); Eosinophils % 2.4 %; Hematocrit 28.7 % (42.0-52.0); Hemoglobin 9.7 g/dL (11.7-16.6); Lymphocytes # 1.7 10^3/uL (0.8-4.8); Lymphocytes % 15.6 %; Mean Corpuscular HGB Conc 33.8 g/dL (30.0-36.0); Mean Corpuscular Hemoglobin 33.1 pg (28.0-34.0); Mean Platelet Volume 11.6 fL (7.4-10.4); Monocytes % 9.2 %; Neutrophils # 7.88 10^3/uL (1.8-7.7); Neutrophils % 71.2 %; Nucleated Red Blood Cells % 0 %; Platelet Count 252 10^3/cmm (130-400); Red Blood Count 2.93 10^6/uL (4.1-5.3); Red Cell Distribution Width 13.1 % (12.1-15.1); White Blood Count 11.1 10^3/uL (4.0-10.0)
[2022-04-27] MEDS: sodium chloride 0.9% 1,000 ML 75 ML IV (05:40)
[2022-04-27 05:53] LABS: Alanine Aminotransferase 31 U/L (0-41); Albumin Level 3.4 g/dL (3.5-5.2); Alkaline Phosphatase 163 IU/L (40-130); Anion Gap 17.6 (5-19); Aspartate Amino Transferase 45 U/L (0-40); Blood Urea Nitrogen 34 mg/dL (8-23); Calcium 8.3 mg/dL (8.5-10.5); Carbon Dioxide 20 mmol/L (22-29); Chloride 106 mmol/L (98-107); Cholesterol 135 mg/dL (0-200); Globulin 2.3 g/dL (1.3-4.6); Glomerular Filtration Rate 22.2 mL/min (90-130); Glucose 109 mg/dL (65-115); HDL Cholesterol 45 mg/dL (60-100); LDL Cholesterol Calculated 61 mg/dL (50-129); Magnesium 1.8 mg/dL (1.7-2.3); Osmolality Calculated 298 mOsm/kg (285-295); Potassium 3.6 mmol/L (3.5-5.1); Sodium 140 mmol/L (136-145); Total Bilirubin 0.4 mg/dL (0.15-1.2); Total Protein 5.7 g/dL (6.6-8.7); Triglycerides 144 mg/dL (0-150); VLDL Cholestrol Calculation 29 mg/dL (0-30)
[2022-04-27 05:55] LABS: Estmated Average Glucose 88; Hemoglobin A1C 4.7 % (4.0-6.0)
[2022-04-27] MEDS: ferrous gluconate 324 mg Tablet PO ×2 (08:18→18:01)
[2022-04-27] MEDS: pantoprazole DR 40 mg Tablet PO (08:18)
[2022-04-27] MEDS: ipratropium-albuterol 3 mL Neb INHALATION ×2 (08:55→14:42)
--- NOTE | 2022-04-27 12:29 | PM.PN ---
Subjective Subjective: Denies any active complaint. On examination lying comfortably in bed, sleeping. States feeling better. Denies any nausea, vomiting, headache. Tolerating diet well. Documented urine output of 600 cc in last 24 hours. Vitals/I&O/Wt Last Vital Signs Temp 98.7 F 04/27/22 11:55 Pulse 98 04/27/22 11:55 Resp 22 H 04/27/22 11:55 BP 117/69 04/27/22 11:55 Pulse Ox 97 04/27/22 11:55 04/26/22 04/27/22 04/27/22 22:59 06:59 14:59 Intake Total 2160 / 3120 1051.25 / 4171.25 360 / 360 Output Total 600 / 1200 Balance 2160 / 2520 451.25 / 2971.25 360 / 360 Weight last 48 hrs Weight 72.575 kg Physical Exam Narrative: General: No acute distress, AO x3, dehydrated, HEENT: PERRLA, pupils bilaterally equal and reactive, pallors not present Chest: Clear to auscultation bilaterally CVS: S1-S2 regular, no murmurs, no tachycardia, no gallops, no rubs Abdomen: Soft, nontender, nondistended Neuro: No focal deficits, no facial deformity, AO x3, power 5/5 in all limbs Extremities: No edema clubbing or cyanosis Data : 04/27/22 04:24 04/27/22 04:24 Micro: Microbiology 04/25/22 20:40 Blood Culture - Preliminary Blood NEGATIVE TO DATE 04/25/22 20:45 Blood Culture - Preliminary Blood NEGATIVE TO DATE A&P Assessment and plan (1) VASHTI (acute kidney injury): Most likely secondary dehydration along with concomitant use of losartan hydrochlorothiazide. Patient also gives history of using NSAIDs. Also hypotensive on admission Baseline creatinine normal. Creatinine trending down today. 2.[address] abdomen pelvis negative for obstructive nephropathy. Urine studies appreciated. Hepatitis panel, HIV awaited. Vitamin B12, folate, iron panel results appreciated. Check BMP daily. Normal saline at 75 cc/h. Strict input output charting. Status: Acute (2) Leukocytosis: Leukocytosis up to 23 on admission. Without any localizing signs or symptoms of infection. Currently trending down to 11,000 today. At this time will hold off on any antibiotics while undergoing work-up for any underlying infection. Blood culture. CT chest abdomen pelvis without any acute infective process. Status: Acute (3) Hypokalemia: Repleted. Continue to monitor daily. Status: Acute (4) Hypotension: Resolving. Most likely secondary to poor oral intake along with multiple antihypertensives at home. Target blood pressure less than 140/90. Mean over 65 mmHg Check orthostatic every 12 hourly. Blood pressure is better now. Hold off on any other hypertensives other than metoprolol 25 mg twice daily as patient having slight tachycardia up to 110 bpm. Reports intermittent chest discomfort, troponins noted to be mildly elevated in the 30s range, however without significant delta at 2 and 6 hours. EKG shows sinus tachycardia at 125 bpm on admission which has resolved Status: Acute Plan Urine drug screen from admission negative. Full code. Renal nondialysis diet. Heparin 5000 every 12 hourly. 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
[2022-04-27] MEDS: iron sucrose 200 MG in sodium chloride 0.9% (100 ml) 100 ML 220 MG IV (14:14)
--- NOTE | 2022-04-27 14:43 | PC.NURSE ---
IV infiltrate. Patient c/o pain at IV site when iron sucrose infusion started. Infusion stopped. IV removed
[2022-04-27 15:58] LABS: Hepatitis A Antibody IgM Non-Reactive (Nonreactive); Hepatitis B Core AB, Total Non-Reactive (Nonreactive); Hepatitis B Surface Antigen Non-Reactive (Nonreactive); Hepatitis C Virus Antibody Non-Reactive (Nonreactive)
[2022-04-27 16:24] LABS: Hepatitis B Surface AB < 3.5 (11.5-1000)
[2022-04-27 16:45] LABS: HIV 1 & 2 Antibody Non-Reactive (Non-Reactiv); HIV 1 & 2 Antigen Non-Reactive (Non-Reactiv)
[2022-04-27] MEDS: metoprolol tartrate 25 mg Tablet PO (20:00)
[2022-04-28] VITALS (8 sets, daily range): BP systolic 126–150; BP diastolic 65–87; PULSE 70–90; RESP 16–26; TEMP 37–37.2; O2SAT 93–100
[2022-04-28] MEDS: heparin 5,000 unit/mL INJ 1 mL 5000 UNIT SUBCUT (03:06)
[2022-04-28 04:41] LABS: Alanine Aminotransferase 59 U/L (0-41); Albumin Level 3.1 g/dL (3.5-5.2); Alkaline Phosphatase 189 IU/L (40-130); Anion Gap 15.6 (5-19); Aspartate Amino Transferase 66 U/L (0-40); Blood Urea Nitrogen 24 mg/dL (8-23); Calcium 8.7 mg/dL (8.5-10.5); Carbon Dioxide 19 mmol/L (22-29); Chloride 108 mmol/L (98-107); Globulin 2.6 g/dL (1.3-4.6); Glomerular Filtration Rate 36.1 mL/min (90-130); Glucose 98 mg/dL (65-115); Osmolality Calculated 292 mOsm/kg (285-295); Potassium 3.6 mmol/L (3.5-5.1); Sodium 139 mmol/L (136-145); Total Bilirubin 0.3 mg/dL (0.15-1.2); Total Protein 5.7 g/dL (6.6-8.7)
[2022-04-28 05:25] LABS: Basophils # 0.1 10^3/uL (0.0-0.1); Basophils % 0.5 %; Eosinophils # 0.3 10^3/uL (0.0-0.8); Eosinophils % 2.8 %; Hematocrit 29.1 % (42.0-52.0); Hemoglobin 9.9 g/dL (11.7-16.6); Mean Corpuscular Hemoglobin 33.9 pg (28.0-34.0); Mean Corpuscular Volume 99.7 fl (80-94); Mean Platelet Volume 10.8 fL (7.4-10.4); Monocytes # 1.3 10^3/uL (0.2-0.9); Monocytes % 12.6 %; Neutrophils # 6.71 10^3/uL (1.8-7.7); Nucleated Red Blood Cells % 0 %; Platelet Count 269 10^3/cmm (130-400); Red Blood Count 2.92 10^6/uL (4.1-5.3); Red Cell Distribution Width 13.2 % (12.1-15.1); White Blood Count 10.5 10^3/uL (4.0-10.0)
[2022-04-28] MEDS: pantoprazole DR 40 mg Tablet PO (09:12)
[2022-04-28] MEDS: ferrous gluconate 324 mg Tablet PO (09:13)
[2022-04-28] MEDS: metoprolol tartrate 25 mg Tablet PO (09:13)
--- NOTE | 2022-04-28 11:47 | PC.NURSE ---
pt is up and walking around in his room and hallways denies any dizziness. HR in 90s to 100s during activity. pt is getting anxious to be discharge.
--- NOTE | 2022-04-28 16:45 | PM.DCS ---
Discharge Providers Date of Admission: 04/25/22 20:14 Date of Discharge: April 28, 2022 Attending Provider at Admission: Ruth Ann Camilo MD Attending Provider at Discharge: Gorge Gutierrez MD Primary Care Provider: [facility] Diagnoses at Discharge Discharge Diagnosis (1) VASHTI (acute kidney injury): Status: Acute (2) Leukocytosis: Status: Acute (3) Hypokalemia: Status: Acute (4) Hypotension: Status: Acute Reason for Visit Reason for Visit: Very low BP Hospital Course Hospital Course HPI: Ruth Ann Camilo MD 61 year old male with a past medical history of COPD, hypertension hyperlipidemia presenting to the emergency room today due to complaints of dizziness and hypotension.? Patient states that he has been feeling dizzy over the past 2 days.? Describes these as episodes of lightheadedness worsen particularly upon changing position or trying to stand from a sitting position.? Review of systems is positive for chest pain that feels as a central sternal pressure that happened 2 days ago.? States that the pain was additionally radiating into his back.? Denies any complains of abdominal pain nausea or vomiting.? He has a history of COPD and currently endorses some postnasal drip.? Continues to use inhalers as prescribed.? He checked his blood pressure at home during the episode of dizziness and found to be low with systolic 85.? Denies any recent changes in his antihypertensive regimen. Labs today were notable for acute kidney injury with creatinine up to 4.8, previously noted normal at 0.9 from 2019.? He has noticed some reduced urine output today.? Additionally noted to have hypokalemia 2.8.? He has not been out in the heat.? CT head today was without any acute intracranial abnormalities.? CT chest abdomen and pelvis was performed due to concerns for dissection which showed centrilobular emphysema and right lung nodules, otherwise without any acute findings on her noncontrast study.? Patient denies any current chest or abdominal or back pain to me at this present time. He denies any fever chills. Hospital course: Patient was admitted for the management of: VASHTI on CKD: Likely prerenal VASHTI: with Possible contribution from HCTZ, and losartan, CT abdomen and pelvis without contrast failed to show any obstructive uropathy Patient was kept on IV hydration, to which he was responding well, serum creatinine was trending down He has been advised to, keeps himself well-hydrated, continue to hold HCTZ and losartan, follow-up with repeat BMP in 1 week with the primary care physician, at that point in time decision regarding initiating HCTZ and losartan can be taken, patient also presented with leukocytosis on admission, likely secondary to dehydration, low clinical suspicion for infection, no antibiotics were used, blood cultures were negative at the time of discharge,.2D echo was also done during the hospital stay as he was reporting intermittent chest discomfort, troponin trend had no significant delta : LV systolic function is normal with EF of 55-60%,Diastolic function is normal,?Trace mitral regurgitation,?Mild aortic stenosis, Trace tricuspid regurgitation. EKG sinus tachycardia. No Acute ST-T wave changes. Likely chest pain is noncardiac.Overall patient responded well to above medical management at the time of discharge and was hemodynamically stable. He is being discharged to home he will continue to follow with primary care physician as an outpatient. Physical Exam Const: COMMON NORMALS: patient oriented x3 HENMT: COMMON NORMALS: normocephalic and atraumatic HEAD & SCALP: normocephalic and atraumatic Chest: CHEST: Yes Symmetrical chest wall rise Resp: COMMON NORMALS: clear to auscultation bilaterally EFFORT & INSPECTION: Yes symmetric chest movement AUSCULTATION: clear to auscultation bilaterally Cardio: COMMON NORMALS: regular rate, regular rhythm, S1 normal heart sound present, S2 normal heart sound present, No gallops present (Cardio), No murmurs present (Cardio), No rub (Cardio) and Peripheral pulses 2+ throughout RATE: regular rate RHYTHM: regular rhythm HEART SOUNDS: S1 normal heart sound present and S2 normal heart sound present PERIPHERAL PULSES: Peripheral pulses 2+ throughout GI: COMMON NORMALS: Normal to inspection, nondistended, normoactive bowel sounds present, Soft to palpation, non-tender, No hepatosplenomegaly present and no masses AUSCULTATION: Yes normoactive bowel sounds PALPATION: Yes Soft to palpation and Yes No hepatosplenomegaly present RECTAL EXAM: Yes deferred Extremity: COMMON NORMALS: no clubbing, cyanosis or edema and no pedal edema Neuro: COMMON NORMALS: patient oriented x3 Discharge Data Studies Completed and Pending Completed Studies During Hospitalization Category [place] [id number] Stat Cat Scan 04/25/22 17:[address] head wo con* [id number] Stat Cat Scan 04/25/22 17:51 Completed XR chest 1V portable [id number] Stat Exams 04/25/22 17:09 Completed CV. echo complete* [id number] Routine Ultrasound 04/26/22 05:59 Completed Pending at discharge Category Date Time Status Blood Culture Stat Lab 04/25/22 20:45 Results Radiology Impressions Chest X-Ray 04/25/22 17:09 IMPRESSION: 1. No acute cardiopulmonary process. 2. Incidental/nonacute findings are listed in the report. Chest/Abdomen/Pelvis CT 04/25/22 17:51 IMPRESSION: 1. No acute findings. 2. Moderate severity centrilobular emphysema. 3. Right lung nodules measuring up to 4 mm. For patients at low risk (minimal or absent history of smoking and of other known risk factors), no routine follow-up is indicated. For patients at high risk (history of smoking or of other known risk factors), consider optional CT Chest at 12 IMPRESSION: 1. No acute findings. 2. Incidental findings above. COMMENTS: Consistent with the [employer]'s Incidental Findings Committee white paper (J [employer] Amilcar Radiol 2017): For any incidental adrenal lesion greater than or equal to 1 cm but less than or equal to 4 cm classified in this report as benign, likely benign, or containing fat (including classification as an adenoma or myelolipoma), no follow-up imaging is recommended per consensus recommendations based on imaging criteria. Further lab evaluation could be pursued if warranted based on clinical findings. Head CT 04/25/22 17:51 IMPRESSION: 1. No acute abnormality of the brain. 2. Mild chronic white matter microangiopathic change. 3. Small amount of fluid in the right and left mastoid air cells. 4. Incidental/nonacute findings are listed in the report. Laboratory Results WBC 10.5 10^3/uL (4.0-10.0) H 04/28/22 05:20 Corrected WBC Cancelled 04/28/22 03:56 RBC 2.92 10^6/uL (4.1-5.3) L 04/28/22 05:20 Hgb 9.9 g/dL (11.7-16.6) L 04/28/22 05:20 Hct 29.1 % (42.0-52.0) L 04/28/22 05:20 MCV 99.7 fl (80-94) H 04/28/22 05:20 MCH 33.9 pg (28.0-34.0) 04/28/22 05:20 MCHC 34.0 g/dL (30.0-36.0) 04/28/22 05:20 RDW 13.2 % (12.1-15.1) 04/28/22 05:20 Plt Count 269 10^3/cmm (130-400) 04/28/22 05:20 MPV 10.8 fL (7.4-10.4) H 04/28/22 05:20 Gran % Cancelled 04/28/22 03:56 Neut % (Auto) 64.0 % 04/28/22 05:20 Lymph % (Auto) 19.0 % 04/28/22 05:20 [place] % (Auto) 12.6 % 04/28/22 05:20 Eos % (Auto) 2.8 % 04/28/22 05:20 Baso % (Auto) 0.5 % 04/28/22 05:20 Neut # (Auto) 6.71 10^3/uL (1.8-7.7) 04/28/22 05:20 Lymph # (Auto) 2.0 10^3/uL (0.8-4.8) 04/28/22 05:20 [place] # (Auto) 1.3 10^3/uL (0.2-0.9) H 04/28/22 05:20 Eos # (Auto) 0.3 10^3/uL (0.0-0.8) 04/28/22 05:20 Baso # (Auto) 0.1 10^3/uL (0.0-0.1) 04/28/22 05:20 Absolute Gran (auto) Cancelled 04/28/22 03:56 Nucleated RBC % (auto) 0 % 04/28/22 05:20 Nucleated RBCs # 0.0 /100WBC 04/28/22 05:20 PT 13.90 SECONDS (12.1-14.9) 04/25/22 17:38 INR 1.04 (0.8-1.2) 04/25/22 17:38 APTT 28.3 SECONDS (23.9-36.7) 04/25/22 17:38 Sodium 139 mmol/L (136-145) 04/28/22 03:56 Potassium 3.6 mmol/L (3.5-5.1) 04/28/22 03:56 Chloride 108 mmol/L (98-107) H 04/28/22 03:56 Carbon Dioxide 19 mmol/L (22-29) L 04/28/22 03:56 Anion Gap 15.6 (5-19) 04/28/22 03:56 BUN 24 mg/dL (8-23) H 04/28/22 03:56 Creatinine 1.9 mg/dL (0.7-1.2) H 04/28/22 03:56 GFR Calculation 36.1 mL/min (90-130) L 04/28/22 03:56 Glucose 98 mg/dL (65-115) 04/28/22 03:56 Estimat Average Glucose 88 04/27/22 04:24 Hemoglobin A1c 4.7 % (4.0-6.0) 04/27/22 04:24 Calculated Osmolality 292 mOsm/kg (285-295) 04/28/22 03:56 Lactate 1.9 mmol/L (0.5-2.2) 04/25/22 20:45 Calcium 8.7 mg/dL (8.5-10.5) 04/28/22 03:56 Magnesium 1.8 mg/dL (1.7-2.3) 04/27/22 04:24 Iron 23 ug/dL (59-158) L 04/26/22 11:59 TIBC 171 mcg/dl 04/26/22 11:59 % Saturation 13.4 % (20-50) L 04/26/22 11:59 Unsat Iron Binding 148 ug/dL (112-347) 04/26/22 11:59 Total Bilirubin 0.3 mg/dL (0.15-1.2) 04/28/22 03:56 AST 66 U/L (0-40) H 04/28/22 03:56 ALT 59 U/L (0-41) H 04/28/22 03:56 Alkaline Phosphatase 189 IU/L (40-130) H 04/28/22 03:56 Creatine Kinase 75 U/L (39-308) 04/25/22 20:00 Troponin T Baseline 39 ng/L (0-15) H 04/25/22 17:38 Troponin T 120 Minute 33.02 ng/L (0-15) H 04/25/22 20:00 Delta Troponin T -5.98 ABS# (0-10) L 04/25/22 20:00 Troponin T Hi Sens 6Hr 31.42 ng/L (0-15) H 04/25/22 23:37 Troponin T Hi Sens 6Hr Delta -7.58 ng/L (0-12) L 04/25/22 23:37 NT-Pro-B Natriuret Pep 3110 pg/mL (0-125) H 04/25/22 17:38 Total Protein 5.7 g/dL (6.6-8.7) L 04/28/22 03:56 Albumin 3.1 g/dL (3.5-5.2) L 04/28/22 03:56 Globulin 2.6 g/dL (1.3-4.6) 04/28/22 03:56 Triglycerides 144 mg/dL (0-150) 04/27/22 04:24 Cholesterol 135 mg/dL (0-200) 04/27/22 04:24 LDL Cholesterol, Calc 61 mg/dL (50-129) 04/27/22 04:24 Total VLDL Cholesterol 29 mg/dL (0-30) 04/27/22 04:24 HDL Cholesterol 45 mg/dL (60-100) L 04/27/22 04:24 Cholesterol/HDL Ratio 3.00 mg/dL (1.0-5.00) 04/27/22 04:24 Lipase 120 U/L (13-60) H 04/25/22 17:38 Vitamin B12 699 pg/mL (232-1245) 04/26/22 11:59 Folate 7.5 ng/mL (4.5-32.2) 04/26/22 11:59 Procalcitonin 0.23 ng/mL (0-0.5) 04/26/22 11:59 TSH 0.75 uIU/mL (0.27-4.20) 04/26/22 11:59 Urine Color Yellow (Yellow) 04/26/22 01:00 Urine Appearance Clear (CLEAR) 04/26/22 01:00 Urine pH 5 (5-7) 04/26/22 01:00 Ur Specific [place] 1.010 (1.005-1.030) 04/26/22 01:00 Urine Protein Neg (Negative) 04/26/22 01:00 Urine Glucose (UA) Norm (Normal) 04/26/22 01:00 Urine Ketones Negative (Negative) 04/26/22 01:00 Urine Blood Neg (Negative) 04/26/22 01:00 Urine Nitrate Negative (Negative) 04/26/22 01:00 Urine Bilirubin 1+ (Negative) H 04/26/22 01:00 Urine Urobilinogen Norm mg/dL (Negative) 04/26/22 01:00 Ur Leukocyte Esterase Negative (Negative) 04/26/22 01:00 Ur Eosinophil Smear 0 (0-0) 04/26/22 17:18 Urine Eosinophils No eosinophils seen 04/26/22 17:18 Ur Random Sodium 79 mmol/L 04/26/22 17:18 Ur Random Potassium 16 mmol/L 04/26/22 17:18 Ur Random Chloride 65 mmol/L 04/26/22 17:18 Urine Creatinine 99 mg/dL (39-259) 04/26/22 17:18 Urine Opiates Screen Negative ng/mL (Negative) 04/26/22 17:18 Ur Barbiturates Screen Negative ng/mL (Negative) 04/26/22 17:18 Ur Phencyclidine Scrn Negative ng/mL (Negative) 04/26/22 17:18 Ur Amphetamines Screen Negative ng/mL (Negative) 04/26/22 17:18 U Benzodiazepines Scrn Negative ng/mL (Negative) 04/26/22 17:18 Urine Cocaine Screen Negative ng/mL (Negative) 04/26/22 17:18 U Marijuana (THC) Screen Negative ng/mL (Negative) 04/26/22 17:18 Hepatitis A IgM Ab Non-reactive (Nonreactive) 04/27/22 11:59 Hep Bs Antigen Non-reactive (Nonreactive) 04/27/22 11:59 Hep Bs Antibody < 3.5 (11.5-1000) L 04/27/22 11:59 Hep B Core Total Ab Non-reactive (Nonreactive) 04/27/22 11:59 Hepatitis C Antibody Non-reactive (Nonreactive) 04/27/22 11:59 HIV 1&2 Ab & HIV 1 Ag Non-reactive (Non-Reactiv) 04/27/22 11:59 HIV 1&2 Antibody Non-reactive (Non-Reactiv) 04/27/22 11:59 Vitals Last Vital Signs Temp 98.8 F 04/28/22 12:15 Pulse 70 04/28/22 12:15 Resp 23 H 04/28/22 12:15 BP 133/83 04/28/22 12:15 Pulse Ox 100 04/28/22 12:15 Discharge Plan Discharge Patient Disposition: Home Condition: Stable Prescriptions: Continued Spiriva Respimat 2.5 mcg/actuation mist 2 puff inhalation DAILY 0RF albuterol sulfate 90 mcg/actuation HFA aerosol inhaler 2 puff inhalation QID PRN (Reason: shortness of breath) 0RF budesonide-formoterol 160-4.5 mcg/actuation HFA aerosol inhaler 2 puff inhalation BID 0RF cholecalciferol (vitamin D3) 50 mcg (2,000 unit) tablet,chewable 4,000 unit PO DAILY 0RF omeprazole 40 mg capsule,delayed release(DR/EC) 40 mg PO DAILY 0RF pravastatin 40 mg tablet 20 mg PO DAILY 0RF sildenafil 100 mg tablet 100 mg PO .weekly PRN (Reason: Sexual Activity) 0RF Rx Instructions: administer 30 minutes to 4 hours before activity Held hydrochlorothiazide 25 mg tablet 12.5 mg PO DAILY 0RF Hold Instructions: Resume on 05/05/22. losartan [Cozaar] 100 mg tablet 100 mg PO DAILY 0RF Hold Instructions: Resume on 05/05/22. Discharge Orders: Discharge Order (Routine); Ordered 04/28/22 Ordered By: Gorge Gutierrez Other Ambulatory Orders: Basic Metabolic Panel (Routine) Timeframe: 1 Week Facility: [facility] - Location: Lab - Main Lab Ordered By: Gorge Gutierrez Referrals: [facility] [Primary Care Provider] - 05/05/22 11:30 am Patient Instructions: Chest Pain (DC), Syncope (DC), Hypotension (DC), Opioid Safety Discharge Attestations Time Spent in Discharge Care*: less than 30 min Quality Metrics Clinical Quality Measures [ No reported AMI, CVA or VTE this stay] Coding Level of Care Code Acute Chg FW DC note Diagnoses VASHTI (acute kidney injury) N17.9 Leukocytosis D72.829 Hypokalemia E87.6 Hypotension I95.9
== END 2022-04-28 12:15 | disposition home or self-care (01) | DRG 684 ==
LOC: ER 20:14 → MEDSURG 20:49
PROVIDERS: Student in an Organized Health Care Education/Training Program; Admitting Provider Student in an Organized Health Care Education/Training Program; Emergency Provider Emergency Medicine; Visit Provider Internal Medicine
DX: N17.9 Acute kidney failure, unspecified (principal); J43.2 Centrilobular emphysema; I11.0 Hypertensive heart disease with heart failure; N18.9 Chronic kidney disease, unspecified; E78.5 Hyperlipidemia, unspecified; F17.200 Nicotine dependence, unspecified, uncomplicated; I95.9 Hypotension, unspecified; E87.6 Hypokalemia; E83.42 Hypomagnesemia; E86.0 Dehydration; Z79.51 Long term (current) use of inhaled steroids; T50.2X5A Adverse effect of carbonic-anhydrase inhibitors, benzothiadiazides and other diuretics, initial encounter; T46.5X5A Adverse effect of other antihypertensive drugs, initial encounter
CPT/HCPCS: 36415; 70450; 71045; 71250; 74176; 80053; 80061; 80306; 81003; 82436; 82550; 82570; 82607; 82746; 83036; 83540; 83550; 83605; 83690; 83735; 83880; 84133; 84145; 84300; 84443; 84484; 85025; 85610; 85730; 85999; 86705; 86706; 86709; 86803; 87040; 87340; 87806; 93005; 93306; 94640; 96365; 96366; 96367; 96372; 99285; J1644; J1756; J3475; J3480; J7030; J7040

== ENCOUNTER 2023-05-28 08:55 | Outpatient (CLI) | payer OTHER, SELFPAY ==
--- NOTE | 2023-05-28 09:08 | US_ITS ---
WS: [id number] RIGHT UPPER QUADRANT ULTRASOUND HISTORY: RUQ FOLLOW UP/ELEVATED LIVER ENZYMES COMPARISON: 10/12/2018 Liver: 16.8 cm in length. Normal size liver and echogenicity. No bile duct dilatation or mass. Portal Vein: Normal hepatopetal flow with monophasic waveform. Gallbladder: Normally distended gallbladder with no stones or wall thickening. CBD: 0.4 cm Pancreas: Normal size and echogenicity. Right kidney: 9.6 cm in length. Normal size kidney. Renal calcification is nonobstructing in the mid kidney measuring 1.5 cm. Aorta and IVC: Unremarkable abdominal aorta and IVC. No ascites. IMPRESSION: 1. Normal gallbladder. 2. Nonobstructing 1.5 cm right renal calcification.
== END 2023-05-28 08:56 | disposition home or self-care (01) ==
LOC: RAD 08:57
PROVIDERS: PCP Family Medicine; Visit Provider Family Medicine
DX: R10.11 Right upper quadrant pain (principal); N20.0 Calculus of kidney
CPT/HCPCS: 76705

== ENCOUNTER 2023-11-24 14:38 | Emergency (ER) | payer OTHER, SELFPAY ==
[2023-11-24] VITALS (7 sets, daily range): BP systolic 92–132; BP diastolic 68–93; PULSE 94–126; RESP 16; TEMP 36.7; O2SAT 96–100; BMI 26.6
--- NOTE | 2023-11-24 14:48 | XRR_ITS ---
PROCEDURE INFORMATION: Exam: XR Chest Exam date and time: 11/24/2023 3:41 PM Age: 63 years old Clinical indication: Other: Hypotension; Additional info: Weakness. No history of recent trauma or surgery is provided. TECHNIQUE: Imaging protocol: Radiologic exam of the chest. 3image(s) are provided. Views: 1 view. COMPARISON: 1. [place] [id number] 04/25/2022 7:07 PM 2. CR (CHEST, ) 04/25/2022 5:36 PM FINDINGS: Lungs: There is some mild chronic air trapping appearance.There is some subsegmental atelectasis versus post inflammatory reticulonodular scarring demonstrated.No lobar consolidation is appreciated. Pleural spaces: No pneumothorax or significant pleural effusion is appreciated. Heart/Mediastinum: The cardiomediastinal silhouette is upper normal in size.This can be seen with central averaging as well as xavier enlargement.No cardiac decompensation is appreciated. Diaphragm: There is slight asymmetric right hemidiaphragm elevation with cardio diaphragmatic fat pad averaging similar. Bones/joints: Osseous alignment is maintained. No interval displaced fracture or dislocation is appreciated. There is some chronic appearing degenerative changes of the shoulders. There are some chronic appearing degenerative changes of the shoulders. There are some chronic appearing rib deformity similar overall. Soft tissues: No radiopaque foreign body or subcutaneous emphysema is appreciated. Other findings: No other significant interval changes are appreciated. XR/XR chest 1V portable [id number] IMPRESSION: There is chronic air trapping, emphysematous appearance with no interval lobar consolidation appreciated.No interval acute cardiopulmonary changes are appreciated.
--- NOTE | 2023-11-24 14:49 | ECG_ITS ---
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 Measurements Intervals [place] Rate: 127 P: 69 VA: 142 QRS: 57 QRSD: 74 T: 87 QT: 317 QTc: 462 Interpretive Statements SINUS TACHYCARDIA WITH FREQUENT SUPRAVENTRICULAR PREMATURE COMPLEXES MODERATE ST DEPRESSION [0.05+ mV ST DEPRESSION] Compared to ECG 04/26/2022 00:03:24 Sinus rhythm no longer present ST (T wave) deviation still present Electronically Signed On 11-24-2023 16:29:36 [employer] CLERK by Devon Abraham M.D. [id number]
[2023-11-24 15:39] LABS: Basophils # 0.1 10^3/uL (0.0-0.1); Basophils % 0.6 %; Eosinophils # 0.3 10^3/uL (0.0-0.8); Eosinophils % 1.8 %; Hematocrit 45.3 % (37-53); Lymphocytes # 2.4 10^3/uL (0.8-4.8); Lymphocytes % 14.6 %; Mean Corpuscular HGB Conc 34.9 g/dL (30-55); Mean Corpuscular Hemoglobin 34.3 pg (27-33); Mean Corpuscular Volume 98.3 fl (82-101); Mean Platelet Volume 12.1 fL (7.4-10.4); Monocytes # 1.4 10^3/uL (0.2-0.9); Monocytes % 8.1 %; Neutrophils # 12.35 10^3/uL (1.8-7.7); Neutrophils % 74.2 %; Nucleated Red Blood Cells % 0 %; Platelet Count 212 10^3/cmm (157-399); Red Blood Count 4.61 10^6/uL (3.85-5.65); Red Cell Distribution Width 13.9 % (12.1-15.1); White Blood Count 16.64 10^3/uL (3.29-11.43)
[2023-11-24 15:56] LABS: Lactic Sepsis W/Reflex 1.7 mmol/L (0.5-2.2)
[2023-11-24 15:58] LABS: Alanine Aminotransferase 13 U/L (0-41); Alkaline Phosphatase 132 U/L (40-130); Aspartate Amino Transferase 22 U/L (0-40); Blood Urea Nitrogen 51 mg/dL (8-23); Calcium 8.8 mg/dL (8.5-10.5); Carbon Dioxide 22 mmol/L (22-29); Chloride 93 mmol/L (98-107); Globulin 3.2 g/dL (1.3-4.6); Glomerular Filtration Rate 22.9 mL/min (90-130); Glucose 116 mg/dL (65-115); Lipase 58 U/L (13-60); Osmolality Calculated 291 mOsm/kg (285-295); Sodium 133 mmol/L (136-145); Total Bilirubin 0.9 mg/dL (0.15-1.2); Total Protein 7.2 g/dL (6.6-8.7)
[2023-11-24 16:08] LABS: Slide Review Slide Review Perform
--- NOTE | 2023-11-24 16:12 | ED_ITS ---
HPI - Dizziness 2 General: Chief Complaint: Dizziness Stated Complaint: hypotension Time Seen by Provider: 11/24/23 15:58 Source: patient and EMS Mode of arrival: EMS Limitations: no limitations History of Present Illness: HPI Narrative: 63-year-old male states that he is feeli ng lightheaded like he is going to pass out today upon standing. He states he taken his blood pressure at home it was in the 70s with EMS it was in the 90s. He denies any vomiting or diarrhea he denies any pain anywhere denies any headache he states he is feels fatigued and lightheaded at times. Associated symptoms: Reports malaise; Denies chest pain, chills, headache(s), nausea or vomiting Review of Systems 2 Const: Reports: fatigue and malaise; Denies: fever(s) or chills Eyes: Denies: eye discomfort ENMT: Denies: throat pain or dental pain Card: Denies: chest pain Resp: Denies: dyspnea GI: Denies: abdominal pain, nausea, vomiting or diarrhea Musc: Denies: neck pain or back pain Skin/Breast: Denies: rash Neuro: Denies: headache(s) PFSH ED 2 PFSH: Medical History COPD (chronic obstructive pulmonary disease) H/O esophageal reflux Polyp of colon Hypomagnesuria Hypotension Hypokalemia VASHTI (acute kidney injury) Leukocytosis Syncope Chest pain Family History Other Cancer Social History Smoking and tobacco/nicotine status: current every day tobacco/nicotine user Alcohol intake: current Marital status: Number of children: 3 service: Yes Physical Exam 2 Const: COMMON NORMALS: patient oriented x3 HENMT: COMMON NORMALS: normocephalic and atraumatic HEAD & SCALP: n ormocephalic and atraumatic Neck/C-Spine: COMMON NORMALS: full ROM and supple Chest: COMMONS NORMALS: normal inspection of the chest Resp: COMMON NORMALS: normal respiratory effort, No retractions, No use of accessory muscles and clear to auscultation bilaterally AUSCULTATION: clear to auscultation bilaterally Cardio: COMMON NORMALS: regular rhythm and No murmurs present (Cardio) R ATE: tachycardic RHYTHM: regular rhythm GI: COMMON NORMALS: Normal to inspection, nondistended, normoactive bowel sounds present, Soft to palpation, non-tender and no masses PALPATION: Yes Soft to palpation Extremity: COMMON NORMALS: normal to inspection and full ROM Neuro: COMMON NORMALS: patient oriented x3, moves all extremities and no focal motor deficits Psych: COMMON NORMALS: mental status grossly normal, Normal thought process present and cooperative THOUGHT PROCESS: Normal thought process present Skin: COMMON NORMALS: no rashes or lesions noted and no wounds GENERAL SKIN EXAM: no rashes or lesions noted Course 2 Vital Signs: Vital signs: Vital Signs Temperature 98.1 F 11/24/23 14:47 Pulse Rate 95 11/24/23 18:03 Respiratory Rate 16 11/24/23 14:47 Blood Pressure 124/86 11/24/23 18:03 Pulse Oximetry 96 11/24/23 16:08 Oxygen Delivery Me thod Room Air 11/24/23 16:08 MDM - Dizziness Medical Decision Making Patient presents here with near syncope is likely orthostatic hypotension from dehydration I did offer patient admission he wanted to have fluids and go home after 2 L of fluids his blood pressure here is improved his orthostatics are normal he feels much improved he is stable for discharge at this time I did inform him if he worsens he is to return he understands agrees to plan. Medical Records I reviewed the patient's medical records. Lab Data I reviewed the patient's lab results. 11/24/23 15:06 11/24/23 15:06 Radiology Impressions Chest X-Ray 11/24/23 14:48 IMPRESSION: There is chronic air trapping, emphysematous appearance with no interval lobar consolidation appreciated.No interval acute cardiopulmonary changes are appreciated. Laboratory Results WBC 16.64 10^3/uL (3.29-11.43) H 11/24/23 15:06 RBC 4.61 10^6/uL (3.85-5.65) 11/24/23 15:06 Hgb 15.80 g/dL (11.27-16.99) 11/24/23 15:06 Hct 45.3 % (37-53) 11/24/23 15:06 MCV 98.3 fl (82-101) 11/24/23 15:06 MCH 34.3 pg (27-33) H 11/24/23 15:06 MCHC 34.9 g/dL (30-55) 11/24/23 15:06 RDW 13.9 % (12.1-15.1) 11/24/23 15:06 Plt Count 212 10^3/cmm (157-399) 11/24/23 15:06 MPV 12.1 fL (7.4-10.4) H 11/24/23 15:06 Neut % (Auto) 74.2 % 11/24/23 15:06 Lymph % (Auto) 14.6 % 11/24/23 15:06 Hall % (Auto) 8.1 % 11/24/23 15:06 Eos % (Auto) 1.8 % 11/24/23 15:06 Baso % (Auto) 0.6 % 11/24/23 15:06 Neut # (Auto) 12.35 10^3/uL (1.8-7.7) H 11/24/23 15:06 Lymph # (Auto) 2.4 10^3/uL (0.8-4.8) 11/24/23 15:06 [place] # (Auto) 1.4 10^3/uL (0.2-0.9) H 11/24/23 15:06 Eos # (Auto) 0.3 10^3/uL (0.0-0.8) 11/24/23 15:06 Baso # (Auto) 0.1 10^3/uL (0.0-0.1) 11/24/23 15:06 Nucleated RBC % (auto) 0 % 11/24/23 15:06 Nucleated RBCs # 0.0 /100WBC 11/24/23 15:06 Sodium 133 mmol/L (136-145) L 11/24/23 15:06 Potassium 3.0 mmol/L (3.5-5.1) L 11/24/23 15:06 Chloride 93 mmol/L (98-107) L 11/24/23 15:06 Carbon Dioxide 22 mmol/L (22-29) 11/24/23 15:06 Anion Gap 21.0 (5-19) H 11/24/23 15:06 BUN 51 mg/dL (8-23) H 11/24/23 15:06 Creatinine 2.8 mg/dL (0.7-1.2) H 11/24/23 15:06 GFR Calculation 22.9 mL/min (90-130) L 11/24/23 15:06 Glucose 116 mg/dL (65-115) H 11/24/23 15:06 Calculated Osmolality 291 mOsm/kg (285-295) 11/24/23 15:06 Lactic Acid 1.7 mmol/L (0.5-2.2) 11/24/23 15:06 Calcium 8.8 mg/dL (8.5-10.5) 11/24/23 15:06 Total Bilirubin 0.9 mg/dL (0.15-1.2) 11/24/23 15:06 AST 22 U/L (0-40) 11/24/23 15:06 ALT 13 U/L (0-41) 11/24/23 15:06 Alkaline Phosphatase 132 U/L (40-130) H 11/24/23 15:06 Total Protein 7.2 g/dL (6.6-8.7) 11/24/23 15:06 Albumin 4.0 g/dL (3.5-5.2) 11/24/23 15:06 Globulin 3.2 g/dL (1.3-4.6) 11/24/23 15:06 Lipase 58 U/L (13-60) 11/24/23 15:06 All radiology interpretation(s) finalized by discharge Discharge Plan Discharge Patient Disposition: Home Clinical Impression: Near syncope Condition: Stable Prescriptions: No Action Spiriva Respimat 2.5 mcg/actuation mist 2 puff inhalation DAILY albuterol sulfate 90 mcg/actuation HFA aerosol inhaler 2 puff inhalation QID PRN (Reason: shortness of breath) budesonide-formoterol 160-4.5 mcg/actuation HFA aerosol inhaler 2 puff inhalation BID cholecalciferol (vitamin D3) 50 mcg (2,000 unit) tablet,chewable 4,000 unit PO DAILY hydrochlorothiazide 25 mg tablet 12.5 mg PO DAILY Hold Instructions: Resume on 05/05/22. omeprazole 40 mg capsule,delayed release(DR/EC) 40 mg PO DAILY pravastatin 40 mg tablet 20 mg PO DAILY sildenafil 100 mg tablet 100 mg PO .weekly PRN (Reason: Sexual Activity) Rx Instructions: administer 30 minutes to 4 hours before activity losartan [Cozaar] 100 mg tablet 100 mg PO DAILY Hold Instructions: Resume on 05/05/22. Discharge Orders: Discharge ED (Routine); Ordered 11/24/23 Ordered By: Shilpa Aguilar Referrals: Beatriz Pisano MD [Primary Care Provider] - 1-3 days Discharge Diet: Advance as tolerated Discharge Activity: Resume usual activity Patient Instructions: Near Syncope (ED) Coding Level of Care Code ED Household Appliances Service Technician for Carlos Vela
[2023-11-24] MEDS: sodium chloride 0.9% 1,000 ML 999 ML IV ×2 (16:49→16:50)
== END 2023-11-24 18:32 | disposition home or self-care (01) ==
PROVIDERS: Emergency Provider Emergency Medicine; PCP Family Medicine
DX: R55 Syncope and collapse (principal); J44.9 Chronic obstructive pulmonary disease, unspecified; Z72.0 Tobacco use
CPT/HCPCS: 36415; 71045; 80053; 83605; 83690; 85025; 93005; 96360; 96361; 99285; J7030

== ENCOUNTER 2025-05-05 09:09 | Outpatient (CLI) | payer OTHER, SELFPAY ==
--- NOTE | 2025-05-05 09:16 | US_ITS ---
WS: [id number] RIGHT UPPER QUADRANT ULTRASOUND HISTORY: ELEVATED LIVER ENZYMES COMPARISON: 05/28/2023 Liver: 16.4 cm in length. Normal size liver with mild coarse echotexture and hepatic steatosis. The entire liver not well visualized due to hepatic steatosis. Portal Vein: Normal hepatopetal flow with monophasic waveform. Gallbladder: Normally distended gallbladder with no stones or wall thickening. CBD: 0.3 cm Pancreas: Portions of the head and tail are obscured. The body is negative. Right kidney: 9.0 cm in length. Normal size and echogenicity. No hydronephrosis or mass. Aorta and IVC: Unremarkable abdominal aorta and IVC. No ascites. US/US abdomen limited [id number] IMPRESSION: 1. Negative gallbladder. 2. Normal size liver with hepatic steatosis. 3. Normal common bile duct.
== END 2025-05-05 09:10 | disposition home or self-care (01) ==
LOC: RAD 09:10
PROVIDERS: PCP Family Medicine; Visit Provider Family Medicine
DX: R74.8 Abnormal levels of other serum enzymes (principal)
CPT/HCPCS: 76705